=== PATIENT | female | born 1985 | race Two or more races ===

== ENCOUNTER 2018-08-16 11:57 | Inpatient (IN) | payer BC ==
[~2018-08-16] VITALS: Ht 149.9 cm; Wt 54.9 kg
--- OUTSIDE RECORDS SUMMARY | 2018-08-16 12:01 | XMS REPORT | Clinical Summary ---
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 Active Problems Problem Noted Date Diarrhea 03/29/2018 Encounters Care Team Description Date Type Specialty 03/29/2018 Travel Willy Fergsuon MD Joglekar, Swati, MD Diarrhea, unspecified type (Primary Dx) 03/28/2018 Emergency General Internal Medicine - 03/30/2018 after 08/15/2017 Social History Date Tobacco Use Types Packs/Day Years Used Never Assessed Sex Assigned at Date Recorded Not on file Industry Job Start Date Occupation Not on file Not on file Not on file Travel End Travel History Travel Start No recent travel history available. Last Filed Vital Signs Time Taken Vital Sign Reading 03/30/2018 7:34 AM [facility] Blood Pressure 102/68 03/30/2018 7:34 AM [facility] Pulse 54 03/30/2018 7:34 AM [facility] Temperature 37.1 C (98.7 F) 03/30/2018 7:34 AM [facility] Respiratory Rate 15 03/30/2018 7:34 AM [facility] Oxygen Saturation 99% - Inhaled Oxygen - Concentration 03/29/2018 5:51 AM [facility] Weight 52.7 kg (116 lb 4 oz) 03/29/2018 5:51 AM [facility] Height 149.9 cm (4' 11") 03/29/2018 5:51 AM [facility] Body Mass Index 23.48 Plan of Treatment Health Maintenance Due Date Last Done Comments INFLUENZA VACCINE 09/06/2018 Procedures Comments Procedure Name Priority Date/Time Associated Diagnosis ESTIMATED GFR Routine 03/30/2018 3:30 AM [facility] BASIC METABOLIC PANEL Routine 03/30/2018 3:30 AM [facility] RESPIRATORY PATHOGEN Routine 03/29/2018 PANEL 10:43 AM [facility] GASTROINTESTINAL PANEL Routine 03/29/2018 8:31 AM [facility] LACTIC ACID LEVEL, SEPSIS Timed 03/29/2018 - NOW AND REPEAT 2X EVERY 5:59 AM [facility] 3 HOURS LACTIC ACID LEVEL, SEPSIS Timed 03/29/2018 - NOW AND REPEAT 2X EVERY 3:09 AM [facility] [address] ABDOMEN PELVIS WO STAT 03/29/2018 CONTRAST 1:50 AM [facility] POC , URINE STAT 03/29/2018 1:22 AM [facility] ESTIMATED GFR STAT 03/29/2018 12:10 AM [facility] URINALYSIS SCREEN AND STAT 03/29/2018 MICROSCOPY, WITH REFLEX 12:10 AM [facility] TO CULTURE LIPASE LEVEL STAT 03/29/2018 12:10 AM [facility] LACTIC ACID LEVEL, SEPSIS STAT 03/29/2018 - NOW AND REPEAT 2X EVERY 12:10 AM [facility] 3 HOURS COMPREHENSIVE METABOLIC STAT 03/29/2018 PANEL 12:10 AM [facility] HC COMPLETE BLD COUNT STAT 03/29/2018 W/AUTO DIFF 12:10 AM [facility] URINE CULTURE STAT 03/29/2018 12:10 AM [facility] after 08/15/2017 Results * Estimated GFR (03/30/2018 3:30 AM [facility]) Only the most recent of 2 results within the time period is included. Estimated GFR >=90 mL/min/1.73 m2 [facility] Comment: ISLAM [facility] rpretation G1 >=90 Normal or high G2 60-89Mildly decreased [id number] Mildly to moderately decreased [id number] Moderately to severely decreased G4 15-29Severely decreased G5 <15Kidney failure The eGFR was calculated using the Chronic Kidney Disease Epidemiology Collaboration (CKD-EPI) equation. Interpretation is based on recommendations of the National Kidney Foundation-Kidney Disease Outcomes Quality Initiative (NKF-KDOQI) published in 2014. Specimen Plasma specimen Performing Organization Address City/State/Zipcode Phone Number [facility] [place] [address] PATHOLOGY AND GENOMIC MEDICINE [address] * Basic metabolic panel (03/30/2018 3:30 AM [facility]) [facility] Sodium 136 135 - 148 mEq/L [facility] Potassium 3.4 (L) 3.5 - 5.0 mEq/L [facility] Chloride 102 98 - 112 mEq/L [facility] CO2 24 24 - 31 mEq/L [facility] Anion gap 10@ANIO 7 - 15 mEq/L [facility] BUN 5 (L) 6 - 20 mg/dL [facility] Creatinine 0.67 0.50 - 0.90 mg/dL [facility] Glucose 115 (H) 65 - 99 mg/dL [facility] Calcium 8.4 8.3 - 10.2 mg/dL [facility] Specimen Plasma specimen Performing Organization Address City/[facility] [address]/Zipcode Phone Number [facility] [place] [place] [address] PATHOLOGY AND GENOMIC MEDICINE [address] * Respiratory pathogen panel (03/29/2018 10:43 AM [facility]) Pathologist [facility] Respiratory Negative for all pathogens [facility] pathogen panel tested: ISLAM Negative for Adenovirus [facility] Negative for Coronavirus HKU1 Negative for Coronavirus NL63 Negative for Coronavirus 229E Negative for Coronavirus OC43 Negative for Human Metapneumovirus Negative for Rhinovirus/Enterovirus Negative for Influenza A Negative for Influenza A/H1 Negative for Influenza A/H3 Negative for Influenza A/H1-2009 Negative for Influenza B Negative for Parainfluenza Virus 1 Negative for Parainfluenza Virus 2 Negative for Parainfluenza Virus 3 Negative for Parainfluenza Virus 4 Negative for Respiratory Syncytial Virus Negative for Bordetella pertussis Negative for Chlamydophila pneumoniae Negative for Mycoplasma pneumoniae This real-time PCR assay detects the presence of nucleic acids (RNA or DNA) for the respiratory pathogens listed. A result of "Not-detected" does not exclude the possibility of the presence of one or more pathogens at concentrations less than the detectable limits of the assay. Comment: Specimen Information Specimen Source: Nares Specimen Site: Not specified Specimen Nares - Not specified Performing Organization Address City/[facility] [address]/Zipcode Phone Number [facility] [place] [place] [address] PATH[facility] AND [facility] MEDICINE [address] * Gastrointestinal panel (03/29/2018 8:31 AM [facility]) Pathologist [facility] Gastrointestina Negative for all pathogens [facility] panel tested: ISLAM Negative for Salmonella [facility] Negative for Campylobacter Negative for Diarrheagenic E coli/Shigella Negative for Shiga-like toxin-producing E coli Negative for Plesiomonas shigelloides Negative for Yersinia enterocolitica Negative for Vibrio species Negative for Clostridium difficile (Toxin A/B) Negative for Cryptosporidium Negative for Giardia lamblia Negative for Cyclospora cayeteanensis Negative for Entamoeba histolytica Negative for Adenovirus F 40/41 Negative for Astrovirus Negative for Norovirus GI/GII Negative for Rotavirus A Negative for Sapovirus Negative for Clostridium difficile toxin Negative for E coli 0157 This real-time PCR assay detects the presence of nucleic acids (RNA or DNA) for the gastrointestinal pathogens listed. A result of "Not-detected" does not exclude the possibility of the presence of one or more pathogens at concentrations less than the detectable limits of the assay. Comment: Specimen Information Specimen Source: Stool Specimen Site: Nonpreserved Specimen Stool - Nonpreserved Performing Organization Address [facility] [address]/[facility] Phone Number [facility] [place] [place] [address] [address] * Lactic acid level, SEPSIS - Now and repeat 2x every 3 hours (03/29/2018 5:59 AM [facility]) Only the most recent of 3 results within the time period is included. Pathologist [facility] Lactic acid 1.5 0.5 - 2.2 mmol/L [facility] Specimen Blood Performing Organization Address [facility] [address]/Zipcode Phone Number [facility] [place] [address] PATHOLOGY AND GENOMIC MEDICINE [address] * CT Abdomen Pelvis Wo Contrast (03/29/2018 1:50 AM [facility]) Specimen Narrative Performed At EXAM: CT ABDOMEN PELVIS WO CONTRAST RADIANT CLINICAL HISTORY:Abd painunspecified TECHNIQUE: Multidetector CT of the abdomen and pelvis was performed without intravenous administration of iodinated contrast with multiplanar reformats. CT scans are performed using radiation dose reduction techniques (iterative reconstruction and/or automated exposure control). Technical factors are evaluated and adjusted to ensure appropriate moderation of exposure. Automated dose management technology is applied to adjust radiation exposure while achieving a diagnostic quality image. COMPARISON:None FINDINGS: Evaluation of the parenchyma, lymph nodes, and the vessels is limited without intravenous contrast. Lung bases: Normal Liver:No evidence for suspicious focal hepatic lesion. Gallbladder and biliary:Unremarkable. Pancreas:No focal pancreatic lesion identified. No pancreatic duct dilatation. Spleen: Unremarkable. Gastrointestinal:Stomach is unremarkable in appearance. Large and small bowel are normal in caliber. However, the small and large bowel demonstrate scattered intraluminal thickening which, although may be physiological, differential diagnosis includes mild enterocolitis. Peritoneum:No ascites or free air. Adrenals: Unremarkable. Kidneys and ureters:There is no evidence for large irregular renal mass, obstructing calculi, hydronephrosis, or hydroureter. Urinary bladder: Unremarkable. Reproductive organs:Uterus is unremarkable in appearance per CT. Lymph nodes:No enlarged lymph nodes in the abdomen or pelvis. Vascular:Unremarkable, though evaluation of vessel lumens is limited due to lack of IV contrast. Abdominal wall:Unremarkable. Bones:No acute osseous abnormality identified. IMPRESSION: 1.Large and small bowel are normal in caliber. However, the small and large bowel demonstrate scattered intraluminal thickening which, although may be physiological, differential diagnosis includes mild enterocolitis. [facility]-[id number] Procedure Note Interface, Radiology Results Incoming - 03/29/2018 1:58 AM [facility] EXAM: CT ABDOMEN PELVIS WO CONTRAST CLINICAL HISTORY: Abd pain unspecified TECHNIQUE: Multidetector CT of the abdomen and pelvis was performed without intravenous administration of iodinated contrast with multiplanar reformats. CT scans are performed using radiation dose reduction techniques (iterative reconstruction and/or automated exposure control). Technical factors are evaluated and adjusted to ensure appropriate moderation of exposure. Automated dose management technology is applied to adjust radiation exposure while achieving a diagnostic quality image. COMPARISON: None FINDINGS: Evaluation of the parenchyma, lymph nodes, and the vessels is limited without intravenous contrast. Lung bases: Normal Liver: No evidence for suspicious focal hepatic lesion. Gallbladder and biliary: Unremarkable. Pancreas: No focal pancreatic lesion identified. No pancreatic duct dilatation. Spleen: Unremarkable. Gastrointestinal: Stomach is unremarkable in appearance. Large and small bowel are normal in caliber. However, the small and large bowel demonstrate scattered intraluminal thickening which, although may be physiological, differential diagnosis includes mild enterocolitis. Peritoneum: No ascites or free air. Adrenals: Unremarkable. Kidneys and ureters: There is no evidence for large irregular renal mass, obstructing calculi, hydronephrosis, or hydroureter. Urinary bladder: Unremarkable. Reproductive organs: Uterus is unremarkable in appearance per CT. Lymph nodes: No enlarged lymph nodes in the abdomen or pelvis. Vascular: Unremarkable, though evaluation of vessel lumens is limited due to lack of IV contrast. Abdominal wall: Unremarkable. Bones: No acute osseous abnormality identified. IMPRESSION: 1. Large and small bowel are normal in caliber. However, the small and large bowel demonstrate scattered intraluminal thickening which, although may be physiological, differential diagnosis includes mild enterocolitis. [facility]-[id number] Performing Organization Address City/State/Zipcode Phone Number [facility] [address] [place] [address] * POC , urine (03/29/2018 1:22 AM [facility]) [facility] test Negative urine, POC QC done Yes Specimen Urine * Urinalysis screen and microscopy, with reflex to culture (03/29/2018 12:10 AM [facility]ER) Pathologist [facility] Specimen site Clean catch [facility] Color, UA Straw [facility] Appearance, UA Clear [facility] Specific 1.004 1.001 - 1.035 [facility] gravity, [facility] pH, UA 7.0 5.0 - 8.5 [facility] Protein, UA Negative Negative [facility] Glucose, UA Negative Negative [facility] Ketones, UA Trace (A) Negative [facility] Bilirubin, UA Negative Negative [facility] Blood, UA Moderate (A) Negative [facility] Nitrite, UA Negative Negative [facility] Urobilinogen, <2.0 <2.0 [facility] Leukocyte Negative Negative [facility] esterase, [facility] Epithelial <1 /HPF [facility] cells, [facility] WBC, UA <1 0 - 4 /HPF [facility] RBC, UA <1 0 - 5 /HPF [facility] Bacteria, UA Few None seen [facility] Yeast, UA None seen [facility] Yeast with None seen [facility] pseudohyphae[facility] Specimen Urine Performing Organization Address City/State/Zipcode Phone Number [facility] DEPARTMENT OF [address] [place] [id number] PATHOLOGY AND GENOMIC MEDICINE [id number] [place] [address] * CBC with platelet and differential (03/29/2018 12:10 AM [facility]ER) WBC 4.07 (L) 4.50 - 11.00 k/uL [facility] RBC 4.54 4.20 - 5.50 m/uL [facility] HGB 15.4 12.0 - 16.0 g/dL [facility] HCT 44.8 37.0 - 47.0 % [facility] MCV 98.7 82.0 - 100.0 fL [facility] MCH 33.9 27.0 - 34.0 pg [facility] MCHC 34.4 31.0 - 37.0 g/dL [facility] RDW - SD 42.1 37.0 - 55.0 fL [facility] MPV 10.9 8.8 - 13.2 fL [facility] Platelet count 173 150 - 400 k/uL [facility] Nucleated RBC 0.00 /100 WBC [facility] Neutrophils 75.2 (H) 39.0 - 69.0 % [facility] Lymphocytes 16.2 (L) 25.0 - 45.0 % [facility] Monocytes 7.4 0.0 - 10.0 % [facility] Eosinophils 0.2 0.0 - 5.0 % [facility] Basophils 0.5 0.0 - 1.0 % [facility] Immature 0.5Comment: "Immature 0.0 - 1.0 % [facility] granulocytes granulocytes" (promyelocytes, ISLAM myelocytes, metamyelocytes) [facility] Specimen Blood Performing Organization Address City/State/Zipcode Phone Number [facility] DEPARTMENT OF [address] [place] [id number] PATHOLOGY AND GENOMIC MEDICINE [address] [address] [facility] * Urine culture (03/29/2018 12:10 AM [facility]INDLE SANDER) Pathologist [facility] Urine culture SEE COMMENTComment: [facility] Bacteriuria screen negative. [facility] Specimen Performing Organization Address City/State/Zipcode Phone Number [facility] DEPARTMENT OF [address] [place] [address] PATHOLOGY AND GENOMIC MEDICINE [address] * Lipase level (03/29/2018 12:10 AM SPINDLE [facility]ANDER) Pathologist [facility] Lipase 23 13 - 60 U/L [facility] Specimen Plasma specimen Performing Organization Address City/State/Zipcode Phone Number [facility] DEPARTMENT OF [address] [place] [address] PATHOLOGY AND GENOMIC MEDICINE [address] * Comprehensive metabolic panel (03/29/2018 12:10 AM SPINDLE SANDER) Pathologist [facility] Sodium 134 (L) 135 - 148 mEq/L [facility] Potassium 3.7 3.5 - 5.0 mEq/L [facility] Chloride 96 (L) 98 - 112 mEq/L [facility] CO2 24 24 - 31 mEq/L [facility] Anion gap 14@ANIO 7 - 15 mEq/L [facility] BUN 5 (L) 6 - 20 mg/dL [facility] Creatinine 0.80 0.50 - 0.90 mg/dL [facility] Glucose 106 (H) 65 - 99 mg/dL [facility] Calcium 9.4 8.3 - 10.2 mg/dL [facility] Protein 8.3 6.3 - 8.3 g/dL [facility] Comment: [facility] 4.6-7.0 g/dL 1 week 4.4-7.6 g/dL 7 months-1year 5.1-7.3 g/dL 1-2 years5.6-7 .5 g/dL >3 years6.0-8 .0 g/dL 18-150 6.3-8.3 g/dL Albumin 4.1 3.5 - 5.0 g/dL [facility] A/G ratio 1.0 0.7 - 3.8 [facility] Alkaline 85 35 - 104 U/L [facility] phosphatase [facility] AST 49 (H) 10 - 35 U/L [facility] ALT 38 5 - 50 U/L [facility] Total bilirubin 0.3 0.0 - 1.2 mg/dL [facility] Specimen Plasma specimen Performing Organization Address City/State/Zipcode Phone Number [facility] DEPARTMENT OF [address] [place] [address] PATHOLOGY AND GENOMIC MEDICINE [place] [phone] [facility] after 08/15/2017 Insurance Type Payer Benefit Subscriber ID Effective Phone Address Plan / Dates Group PPO BCBS BCBS xxxxxxxxxxxx 2016- CHOICE Present PPO/GRANT [employer] PPO Advance Directives Patient has advance care planning documents on file. For more information, pierre pruett contact: [facility] [address] [place] [address]
--- OUTSIDE RECORDS SUMMARY | 2018-08-16 12:02 | XMS REPORT | Clinical Summary ---
Author Author [facility] Address Unknown Phone Unavailable Care Team Providers Care Specialist Managers Name Role Phone Sharpless PCP Allergies Comments Active Allergy Reactions Severity Noted Date Amoxicillin Nausea And 02/14/2013 Vomiting Peanut 07/08/2015 Tree Nuts Hives 04/12/2018 Medications End Date Status Medication Sig Dispensed Refills Start Date Active multivitamin per tablet Take 1 tablet 0 by mouth daily. Active mesalamine (LIALDA) 1.2 Take 1,200 mg 0 gram EC tablet by mouth 4 (four) times daily. Active ondansetron (ZOFRAN) 4 MG Take 4 mg by 0 tablet mouth 2 (two) times daily as needed for Nausea. Active cholecalciferol, vitamin Take 5,000 0 D3, 1,000 unit capsule Units by mouth daily. Active lactobacillus rhamnosus, Take 1 0 GG, (CULTURELLE) 10 capsule by billion cell capsule mouth daily. Active ferrous sulfate 325 (65 Take 325 mg 0 FE) MG tablet by mouth once a week. Active aloe vera 25 mg Cap Take by 0 mouth. Active Problems Not on file Encounters Care Team Description Date Type Specialty Tierney Marti MD COLONOSCOPY,BIOPSY 04/17/2018 Surgery Caity Gomez CRNA 04/17/2018 Anesthesia Event Tierney Marti MD 04/17/2018 Hospital Encounter Resource, Omt Preadmit Phone 04/12/2018 Hospital Pre-Admission Testing Encounter after 08/15/2017 Social History Date Tobacco Use Types Packs/Day Years Used Never Smoker Smokeless Tobacco: Never Used Alcohol Use Drinks/Week oz/Week Comments No Alcohol Habits Answer Date Recorded How often do you have a drink containing alcohol? Never 04/12/2018 How many drinks containing alcohol do you have on Not asked a typical day when you are drinking? How often do you have six or more drinks on one Not asked occasion? Sex Assigned at Date Recorded Not on file Industry Job Start Date Occupation Not on file Not on file Not on file Travel End Travel History Travel Start No recent travel history available. Last Filed Vital Signs Time Taken Vital Sign Reading 04/17/2018 10:05 AM CDT Blood Pressure 108/59 04/17/2018 10:05 AM CDT Pulse 47 04/17/2018 10:05 AM CDT Temperature 36.6 C (97.8 F) 04/17/2018 10:05 AM CDT Respiratory Rate 16 04/17/2018 10:05 AM CDT Oxygen Saturation 98% - Inhaled Oxygen - Concentration 04/17/2018 7:53 AM CDT Weight 50.8 kg (112 lb) 04/17/2018 7:53 AM CDT Height 149.9 cm (4' 11") 04/17/2018 7:53 AM CDT Body Mass Index 22.62 Plan of Treatment Not on file Procedures Comments Procedure Name Priority Date/Time Associated Diagnosis REPORT OF PROCEDURE - 04/17/2018 ENDOSCOPY URL 10:00 AM CDT REPORT OF PROCEDURE - 04/17/2018 ENDOSCOPY URL 9:57 AM CDT TISSUE EXAM AP Routine 04/17/2018 9:31 AM CDT UPPER ENDOSCOPY,BIOPSY 04/17/2018 Ulcerative pancolitis 9:30 AM CDT with complication (HCC) Enterocolitis Diarrhea, unspecified type Hematochezia Iron deficiency Nausea and vomiting, intractability of vomiting not specified, unspecified vomiting type COLONOSCOPY,BIOPSY 04/17/2018 Ulcerative pancolitis 9:30 AM CDT with complication (HCC) Enterocolitis Diarrhea, unspecified type Hematochezia Iron deficiency Nausea and vomiting, intractability of vomiting not specified, unspecified vomiting type POCT , URINE Routine 04/17/2018 8:22 AM CDT after 08/15/2017 Results * REPORT OF PROCEDURE - ENDOSCOPY URL (04/17/2018 10:00 AM CDT) Narrative Performed At * REPORT OF PROCEDURE - ENDOSCOPY URL (04/17/2018 9:57 AM CDT) Narrative Performed At * Tissue Exam (04/17/2018 9:31 AM CDT) Case Report Surgical Pathology [facility] Report [facility] Case: [id number] Authorizing Provider:Tierney Marti MDCollecte d: 04/17/2018 0931 Ordering Location: [facility] ENDOSCOPY Received: 04/17/2018 1120 SERVICES Pathologist: Ron Rushing MD Specimens: A) - Duodenum B) - Biopsy, Gastric, random R/O H pylori C) - Large Intestine, Colon - Right/Ascending D) - Large Intestine, Colon - Left/Descending E) - Rectum DIAGNOSIS A. DUODENUM, BIOPSY [facility] - ACTIVE DUODENITIS, MILD SEE [facility] COMMENT - NO EVIDENCE OF CELIAC DISEASE B. RANDOM GASTRIC BIOPSY - CHRONIC INACTIVE GASTRITIS - NO INTESTINAL METAPLASIA, NO DYSPLASIA AND NO MALIGNANCY IDENTIFIED - NO HELICOBACTER PYLORI ORGANISMS IDENTIFIED ON WARTHIN-STARRY STAIN C. RIGHT ASCENDING COLON, BIOPSY - COLONIC MUCOSA, WITHIN NORMAL LIMITS - NO ACTIVE COLITIS, NO DYSPLASIA AND NO MALIGNANCY IDENTIFIED D. LEFT DESCENDING COLON, BIOPSY - MILDLY ACTIVE COLITIS - NO DYSPLASIA AND NO MALIGNANCY IDENTIFIED E. RECTUM, BIOPSY - CHRONIC MODERATELY ACTIVE COLITIS/PROCTITIS - NO DYSPLASIA AND NO MALIGNANCY IDENTIFIED Signing Pathologist Direct Phone Line: [phone] COMMENT This finding is non-specific [facility] and may be seen with peptic [facility] injury, some drugs (i.e. NSAIDs), immune-mediated diseases, and infections. Clinical and endoscopic correlation is recommended. CPT Code(s) 94039 x 5, 81948 [facility] CLINICAL HISTORY Ulcerative pancolitis with [facility] complication, enterocolitis, [facility] hematochezia, iron deficiency, nausea and vomiting, intractability of vomiting not specified, rule out H. Pylori SPECIMEN SOURCE A. Duodenum. B. Random gastric [facility] biopsy. C. Right ascending [facility] colon. D. Left descending colon. E. Rectum GROSS DESCRIPTION Specimens are received in five [facility] containers of formalin all [facility] labeled with the patient's information. Specimen A: Labeled "duodenum" consists of multiple fragments of diaz tissue ranging from 0.1 to 0.3 cm, submitted entirely in A1. Specimen B: Labeled "random gastric biopsy" consists of five fragments of diaz tissue ranging from 0.1 to 0.3 cm submitted entirely in B1. Specimen C: Labeled "right ascending colon" consists of five fragments of diaz tissue ranging from 0.1 to 0.2 cm, submitted entirely in C1. Specimen D: Labeled "left descending colon" consists of five fragments of diaz tissue ranging from 0.1 to 0.3 cm, submitted entirely in D1. Specimen E: Labeled "rectum" consists of four fragments of diaz tissue ranging from 0.1 to 0.2 cm, submitted entirely in E1. CG/ew MICROSCOPIC DESCRIPTION A. Sections reveal fragments [facility] of small bowel mucosa with [facility] normal villous architecture. Features of inflammatory bowel disease and Whipple disease are not seen. Mild acute inflammation is identified. No increased intraepithelial lymphocytes are seen. Villous atrophy, parasites, viral inclusions, granulomatous inflammation, adenomatous change, dysplasia and malignancy are not seen. B. Sections reveal fragments of benign antral and corpus mucosa with chronic inflammation. No active gastritis is seen. No Helicobacter pylori organisms are identified on Warthin - Starry stain. Intestinal metaplasia, dysplasia and malignancy are not seen. C. Sections reveal pieces of benign colonic mucosa with chronic inflammation and benign lymphoid aggregates. There is no evidence of granulomatous inflammation or acute colitis. Features of collagenous colitis and lymphocytic colitis are not seen. Adenomatous change, dysplasia and malignancy are not seen. D. Sections reveal pieces of benign colonic mucosa with chronic inflammation and benign lymphoid aggregates. There is no evidence of granulomatous inflammation. Cryptitis is seen in few areas. Features of collagenous colitis and lymphocytic colitis are not seen. Adenomatous change, dysplasia and malignancy are not seen. E. Sections reveal chronic moderately active colitis. Increased inflammatory cells are seen within the lamina propria along with crypt distortion, and many areas showing cryptitis and crypt abscesses. No granulomatous inflammation is seen. Features of collagenous colitis and lymphocytic colitis are not seen. Adenomatous change, dysplasia and malignancy are not seen. SPECIAL STUDIES IMMUNOHISTOCHEMISTRY/SPECIAL [facility] STAIN SUMMARY: [facility] The results of immunohistochemical studies and/or special stains are as follows: B. Warthin-Starry stain - No Helicobacter pylori organisms identified Specimen Tissue Tissue - Gastric biopsy sample (specimen) Tissue - Ascending colon structure (body structure) Tissue - Descending colon structure (body structure) Tissue - Rectum structure (body structure) Performing Organization Address City/State/Zipcode Phone Number [facility] [address] [place] [address] MED[facility]ENTER * POCT , urine (04/17/2018 8:22 AM CDT) Test Urine, POC Negative Control line present?, Yes POC Background clear?, POC Yes UPT Cassette Lot #, POC [id number] UPT Cassette Expiration 06-06-2019 Date, POC Specimen Urine after 08/15/2017 Insurance Payer Benefit Subscriber ID Type Phone Address Plan / Group BLUE CROSS/BLUE SHIELD BCBS PPO xxxxxxxxxxxx PPO [phone] [id number] [place] [address] CHOICE
--- OUTSIDE RECORDS SUMMARY | 2018-08-16 12:02 | XMS REPORT | Continuity of Care Document ---
Author Author [facility] Address Unknown Phone Unavailable Care Team Providers Care Well Point Pumping Supervisor Name Role Phone Do IT developers Information Avanzit Unavailable Unavailable Problems Problem Status Onset Date Classification Date Reported Comments Source Counseling 08/12/2018 Diagnosis 08/12/2018 [facility] Influenza due to Influenza A virus 08/12/2018 Diagnosis 08/12/2018 [facility] Stomach cramps 03/28/2018 Diagnosis 03/28/2018 [facility] Gastroenteritis 03/28/2018 Diagnosis 03/28/2018 [facility] Influenza-like illness 02/03/2017 Diagnosis 02/03/2017 [facility] Cough 02/03/2017 Diagnosis 02/03/2017 [facility] Posterior rhinorrhea 02/03/2017 Diagnosis 02/03/2017 [facility] Acute upper respiratory infection 07/30/2016 Diagnosis 07/30/2016 [facility] Feeling feverish 07/30/2016 Diagnosis 07/30/2016 [facility] Upper Urinary Tract Infection Problem 02/03/2017 [facility] Medications Medication Details Route Status Patient Instructions Ordering Provider Order Date Source mesalamine 1200 MG Delayed Release Oral Tablet [Lialda] Lialda 1.2 gram tablet,delayed release Active 03/28/2018 [facility] Dicyclomine Hydrochloride 20 MG Oral Tablet dicyclomine 20 mg tablet Take 1 tablet 4 times a day by oral route as needed for 3 days. Active [facility] Ondansetron 8 MG Disintegrating Oral Tablet ondansetron [address] 1 tablet every 8 hours by translingual route as needed for 3 days. Active [facility] benzonatate 200 MG Oral Capsule benzonatate 200 mg capsule Take 1 capsule 3 times a day by oral route for 10 days. Active [facility] Brompheniramine Maleate 0.4 MG/ML / Dextromethorphan Hydrobromide 2 MG/ML / Pseudoephedrine Hydrochloride 6 MG/ML Oral Solution [Bromfed DM] Bromfed DM 2 mg-30 mg-10 mg/5 mL syrup Take 10 mL every 4 hours by oral route as needed. Active [facility] Fluticasone propionate 0.05 MG/ACTUAT Metered Dose Nasal [place] fluticasone propionate 50 mcg/actuation nasal spray,suspension [place] 1 spray every day by intranasal route for 30 days. Active [facility] Oseltamivir 75 MG Oral Capsule oseltamivir 75 mg capsule Take 1 capsule twice a day by oral route for 5 days. Active [facility] Alprazolam 0.25 MG Oral Tablet alprazolam 0.25 mg tablet TAKE ONE (1) TABLET(S) BY MOUTH ONCE A DAY NEEDED FOR PANIC DISORDER. Active [facility] Amoxicillin 500 MG Oral Capsule amoxicillin 500 mg capsule TAKE ONE (1) CAPSULE(S) BY MOUTH THREE TIMES A DAY FOR 7 DAYS. Active [facility] Azithromycin 250 MG Oral Tablet azithromycin 250 mg tablet TK 2 TS PO AT ONCE TODAY THEN TK 1 T PO ONCE D FOR 4 DAYS Active [facility] Clindamycin 150 MG Oral Capsule clindamycin 150 mg capsule TK 1 C PO BID FOR 7 DAYS Active [facility] [id number] 0.3 ML Epinephrine 1 MG/ML Auto-Injector [Epipen] EpiPen 2-Karl 0.3 mg/0.3 mL injection, auto-injector Active [facility] Fluconazole 150 MG Oral Tablet fluconazole 150 mg tablet TAKE ONE (1) TABLET(S) BY MOUTH TODAY , THEN REPEAT IN 3 DAYS. Active [facility] NITROFURANTOIN, MACROCRYSTALS 25 MG / Nitrofurantoin, Monohydrate 75 MG Oral Capsule nitrofurantoin monohydrate/macrocrystals 100 mg capsule TK ONE C PO Q 12 H FOR 5 DAYS Active [facility] Nystatin 157566 UNT/ML / Triamcinolone Acetonide 1 MG/ML Topical Cream nystatin-triamcinolone 100,000 unit/g-0.1 % topical cream CHIRAG AA TID PRN FOR ITCHING Active [facility] Tinidazole 500 MG Oral Tablet tinidazole 500 mg tablet TK 4 TS PO D FOR 2 DAYS Active [facility] mesalamine 66.7 MG/ML Enema mesalamine 4 gram/60 mL enema Active [facility] Oseltamivir 75 MG Oral Capsule [Tamiflu] Tamiflu 75 mg capsule Take 1 capsule twice a day by oral route for 5 days. Active [facility] Allergies, Adverse Reactions, Alerts Substance Category Reaction Severity Reaction type Status Date Reported Comments Source Amoxicillin Allergy to substance 06/12/2014 [facility] Immunizations Immunization Date Given Site Status Last Updated Comments Source tetanus toxoid, unspecified formulation 02/06/2011 completed [facility] Results Order Name Results Value Reference Range Date Interpretation Comments Source Influenza A positive 08/12/2018 [facility] Influenza B negative 08/12/2018 [facility] Influenza A negative 03/28/2018 [facility] Influenza B negative 03/28/2018 [facility] Influenza A positive 02/03/2017 [facility] Influenza B negative 02/03/2017 [facility] RESULT negative 02/03/2017 [facility] SWAB LOCATION Left and Right tonsillar pillars 02/03/2017 [facility] Influenza A negative 07/30/2016 [facility] Influenza B negative 07/30/2016 [facility] RESULT negative 07/30/2016 [facility] SWAB LOCATION Left and Right tonsillar pillars 07/30/2016 [facility] Pathology Reports No Data Provided for This Section Diagnostic Reports No Data Provided for This Section Consultation Notes No Data Provided for This Section Discharge Summaries No Data Provided for This Section History and Physicals No Data Provided for This Section Vital Signs Vital Sign Value Date Comments Source Diastolic (mm Hg) 70 08/12/2018 [facility] Height 59 08/12/2018 [facility] Systolic (mm Hg) 100 08/12/2018 [facility] Weight 113 08/12/2018 [facility] Diastolic (mm Hg) 72 03/28/2018 [facility] Height 59 03/28/2018 [facility] Systolic (mm Hg) 100 03/28/2018 [facility] Weight 117 03/28/2018 [facility] Diastolic (mm Hg) 68 02/03/2017 [facility] Height 59 02/03/2017 [facility] Systolic (mm Hg) 110 02/03/2017 [facility] Weight 115 02/03/2017 [facility] Diastolic (mm Hg) 70 07/30/2016 [facility] Height 59 07/30/2016 [facility] Systolic (mm Hg) 110 07/30/2016 [facility] Weight 111 07/30/2016 [facility] Encounters Location Location Details Encounter Type Encounter Number Reason For Visit Attending Provider ADM Date DC Date Status Source [place] - [facility] - [id number] Zimmerman-C: [address] [place] [address], Ph. [phone] [id number] Mary Jane Sandy 07/30/2016 [facility] [place] - [facility] - [id number] Yung, CURRICULUM DEVELOPER-C: [address] [place] [address], Ph. [id number] Sumit Yung 02/03/2017 [facility] [place] - [facility] - [id number] Cynthia Tomasa, [employer] M[employer] OPERATOR-C: [address] [place] [address], Ph. [id number] Johanna Tomasa 03/28/2018 [facility] [place] [facility] - [id number] Shahid Ling [employer] OPERATOR-C: [address] [place] [address], Ph. [id number] Shahid Ling 08/12/2018 [facility] Procedures Procedure Code Date Perfomer Comments Source Tonsillectomy [facility] Assessment and Plan No Data Provided for This Section Plan of Care No Data Provided for This Section Social History Social History Date Source Smoking Status Never Smoker 06/12/2014 [facility] Family History No Data Provided for This Section Advance Directives No Data Provided for This Section Functional Status No Data Provided for This Section
--- OUTSIDE RECORDS SUMMARY | 2018-08-16 12:03 | XMS REPORT | Encounter Summary ---
Author Organization Unknown Address [address] [place] [address] Phone [phone] Reason for Visit Medical Complaint Instructions 1. Gastroenteritis rapid flu (A+B) gastroenteritis: care instructions ondansetron 8 mg disintegrating tablet 2. Stomach cramps dicyclomine 20 mg tablet Discussion Note: None recorded. Plan of Care Patient Instructions See patient education handout Reminders Provider Appointments None recorded. Lab Rapid Flu (A+B) 03/28/2018 [facility] Referral None recorded. Procedures None recorded. Surgeries None recorded. Imaging None recorded. Medications Name Start Date dicyclomine 20 mg tablet Take 1 tablet 4 times a day by oral route as needed for 3 days. Lialda 1.2 gram tablet,delayed release 03/28/2018 ondansetron [address] 1 tablet every 8 hours by translingual route as needed for 3 days. Medications Administered None recorded. Vitals Height Weight BMI Blood Pressure 4 ft 11 in 117 lbs 23.6 kg/m2 100/72 mm[Hg] Lab Results Date Name Specimen Result Interpretation Description Value Range Status Address Rapid Flu (A+B) Influenza a negative [facility]: [address] [place] [address] Influenza B negative [facility]: [address] [place] [address] Allergies Code Code System Name Reaction Severity Status Onset 723 RxNorm Amoxicillin Active Problems No Known Problems Procedures Date Name Performed by Tonsillectomy Information not available Vaccine List Vaccine Type tetanus toxoid, unspecified formulation 02/06/2011 Social History Smoking Status Never Smoker Past Encounters 03/28/2018 Gastroenteritis; Stomach Cramps VERONICA Nicole-C: [address] [place] [address], Ph. History of Present Illness [id number] Reported By: Patient HPI: Location: head/sinuses. Duration: 2 nightsdays. Severity: moderate. Onset/Timing: sudden. Context: no foreign travel, non-smoker, sick contact. Modifying factors: OTC medication. Associated Symptoms: no sputum production, no shortness of breath, no wheezing, no change in number of pillows needed to sleep at night, no sweats, no significant weight gain, no significant weight loss, no morning cough, no sore throat, no vomiting, no rash, no fever, no muscle aches, fatigue, diarrhea, nausea, headache; chills,intense abdominal pain Review of Systems:ROS as noted in the HPI Review of Systems Basic Reported By: Patient Physical Exam Adult Basic, Adult Female Complete Reported By: Patient Constitutional: General Appearance: healthy-appearing, well-nourished, well-developed. Level of Distress: NAD Psychiatric: Mental Status: active and alert. Orientation: to time, to place, to person Lungs: Respiratory effort: no dyspnea, no tachypnea, no use of accessory muscles, no intercostal retractions. Auscultation: breath sounds normal Cardiovascular: Heart Auscultation: RRR, no murmurs Neurologic: Gait and Station: normal gait, normal station Abdomen: Bowel Sounds: high-pitched. Inspection and Palpation: soft, non-distended, no guarding, no rebound tenderness, no masses, no CVA tenderness, epigastric tenderness, LUQ tenderness, RUQ tenderness, LLQ tenderness, RLQ tenderness. Liver: non-tender, no hepatomegaly. Spleen: non-tender, no splenomegaly. Hernia: none palpable
--- OUTSIDE RECORDS SUMMARY | 2018-08-16 12:03 | XMS REPORT | Encounter Summary ---
Author Organization Unknown Address [address] [place] [address] Phone [phone] Reason for Visit Medical Complaint Instructions 1. Influenza due to Influenza A virus rapid flu (A+B) Tamiflu 75 mg capsule fluticasone propionate 50 mcg/actuation nasal spray,suspension benzonatate 200 mg capsule influenza (flu): care instructions cough: care instructions oral rehydration: care instructions 2. Counseling influenza (flu) vaccine (inactivated or recombinant): what you need to know Discussion Note: None recorded. Plan of Care Patient Instructions Your Care Instructions Influenza (flu) is an infection in the lungs and breathing passages. It is caused by the influenza virus. There are different strains, or types, of the flu virus from year to year. Unlike the common cold, the flu comes on suddenly and the symptoms, such as a cough, congestion, fever, chills, fatigue, aches, and pains, are more severe. These symptoms may last up to 10 days. Although the flu can make you feel very sick, it usually doesn't cause serious health problems. Home treatment is usually all you need for flu symptoms. But your doctor may prescribe antiviral medicine to prevent other health problems, such as pneumonia, from developing. Older people and those who have a long-term health condition, such as lung disease, are most at risk for having pneumonia or other health problems. Follow-up care is a mckeon part of your treatment and safety. Be sure to make and go to all appointments, and call your doctor if you are having problems. It's also a good idea to know your test results and keep a list of the medicines you take. How can you care for yourself at home? Get plenty of rest. Drink plenty of fluids, enough so that your urine is light yellow or clear like water. If you have kidney, heart, or liver disease and have to limit fluids, talk with your doctor before you increase the amount of fluids you drink. Take an vhsn-imf-fozxctl pain medicine if needed, such as acetaminophen (Tylenol), ibuprofen (Advil, Motrin), or naproxen (Aleve), to relieve fever, headache, and muscle aches. Read and follow all instructions on the label. No one younger than 20 should take aspirin. It has been linked to Neeraj syndrome, a serious illness. Do not smoke. Smoking can make the flu worse. If you need help quitting, talk to your doctor about stop-smoking programs and medicines. These can increase your chances of quitting for good. Breathe moist air from a hot shower or from a sink filled with hot water to help clear a stuffy nose. Before you use cough and cold medicines, check the label. These medicines may not be safe for young children or for people with certain health problems. If the skin around your nose and lips becomes sore, put some petroleum jelly on the area. To ease coughing: Drink fluids to soothe a scratchy throat. Suck on cough drops or plain hard candy. Take an mnol-mxd-tpwnyzk cough medicine that contains dextromethorphan to help you get some sleep. Read and follow all instructions on the label. Raise your head at night with an extra pillow. This may help you rest if coughing keeps you awake. Take any prescribed medicine exactly as directed. Call your doctor if you think you are having a problem with your medicine. To avoid spreading the flu Wash your hands regularly, and keep your hands away from your face. Stay home from school, work, and other public places until you are feeling better and your fever has been gone for at least 24 hours. The fever needs to have gone away on its own without the help of medicine. Ask people living with you to talk to their doctors about preventing the flu. They may get antiviral medicine to keep from getting the flu from you. To prevent the flu in the future, get a flu vaccine every fall. Encourage people living with you to get the vaccine. Cover your mouth when you cough or sneeze. When should you call for help? Call 911 anytime you think you may need emergency care. For example, call if: You have severe trouble breathing. Call your doctor now or seek immediate medical care if: You have new or worse trouble breathing. You seem to be getting much sicker. You feel very sleepy or confused. You have a new or higher fever. You get a new rash. Watch closely for changes in your health, and be sure to contact your doctor if: You begin to get better and then get worse. You are not getting better after 1 week. Reminders Provider Appointments None recorded. Lab Rapid Flu (A+B) 08/12/2018 [facility] Referral None recorded. Procedures None recorded. Surgeries None recorded. Imaging None recorded. Medications Name Start Date benzonatate 200 mg capsule Take 1 capsule 3 times a day by oral route for 10 days. fluticasone propionate 50 mcg/actuation nasal spray,suspension [place] 1 spray every day by intranasal route for 30 days. mesalamine 4 gram/60 mL enema Tamiflu 75 mg capsule Take 1 capsule twice a day by oral route for 5 days. Medications Administered None recorded. Vitals Height Weight BMI Blood Pressure 4 ft 11 in 113 lbs 22.8 kg/m2 100/70 mm[Hg] Lab Results Date Name Specimen Result Interpretation Description Value Range Status Address Rapid Flu (A+B) Influenza a positive [facility]: [address] [place] [address] Influenza B negative [facility]: [address] [place] [address] Allergies Code Code System Name Reaction Severity Status Onset 723 RxNorm Amoxicillin Active Problems No Known Problems Procedures Date Name Performed by Tonsillectomy Information not available Vaccine List Vaccine Type tetanus toxoid, unspecified formulation 02/06/2011 Social History Smoking Status Never Smoker Past Encounters 08/12/2018 Influenza Due to Influenza a Virus; Counseling VERONICA Raphael-C: [address] [place] [address], Ph. History of Present Illness [id number]-Svw Reported By: Patient HPI: Duration: 1 days. Severity: highest temperature 100. Context: no ill contacts, no tick/insect bites, no recent travel, no new medications. Associated Symptoms: no rash, no lethargy, fever/chills, headache, muscle aches, tired (fatigue), nasal discharge. Modifying Factors OTC medication Review of Systems:ROS as noted in the HPI Review of Systems Basic Reported By: Patient Physical Exam Adult Basic, Adult Female Complete Reported By: Patient Constitutional: General Appearance: healthy-appearing, well-nourished, well-developed. Level of Distress: acutely ill. Ambulation: ambulating normally Psychiatric: Mental Status: active and alert. Orientation: to time, to place, to person Czp-Ulio-Umbps-Throat: Ears: no lesions on external ear, no outer ear tenderness, EACs clear, TMs clear. Hearing: no hearing loss. Nose: no lesions on external nose, nares patent, no septal deviation, nasal passages clear, no sinus tenderness, no nasal discharge. Lips, Teeth, and Gums: no mouth or lip ulcers, no bleeding gums, normal dentition. Oropharynx: moist mucous membranes, no erythema, no exudates, tonsils not enlarged Lungs: Respiratory effort: no dyspnea, no tachypnea, no use of accessory muscles, no intercostal retractions. Auscultation: breath sounds normal Cardiovascular: Heart Auscultation: RRR, no murmurs
--- OUTSIDE RECORDS SUMMARY | 2018-08-16 12:03 | XMS REPORT | Encounter Summary ---
Author Organization Unknown Address [address] [place] [address] Phone [phone] Reason for Visit Medical Complaint Instructions 1. Acute upper respiratory infection upper respiratory infection (cold): care instructions fluticasone 50 mcg/actuation nasal spray,suspension Bromfed DM 2 mg-30 mg-10 mg/5 mL syrup rapid strep group A, throat 2. Feeling feverish rapid flu (A+B) Discussion Note: None recorded. Plan of Care Patient Instructions No antibiotics are needed at this time due to viral nature. Expected course is complete resolution in 10-14 days. Further management include - Antihistamines to dry nasal secretions - Nasal glucocorticoids (flonase) - Analgesics (acetaminophen or NSAIDs) for pain/fever relief - Increase rest, fluids, humidified inspired air. - Discontinue any tobacco products. Hard candy or lozenges for scratchy throat. - Handwashing is the single most effective preventive measure. Please seek care (PCP, Urgent Care, ER) or return to [facility] if symptoms worsen or do not resolve or if you notice signs of infection such as fever, SOB, redness/tenderness/yellow discharge. Reminders Provider Appointments None recorded. Lab Rapid Strep Group a, Throat 07/30/2016 [facility] Rapid Flu (A+B) 07/30/2016 [facility] Referral None recorded. Procedures None recorded. Surgeries None recorded. Imaging None recorded. Medications Name Start Date alprazolam 0.25 mg tablet TAKE ONE (1) TABLET(S) BY MOUTH ONCE A DAY NEEDED FOR PANIC DISORDER. amoxicillin 500 mg capsule TAKE ONE (1) CAPSULE(S) BY MOUTH THREE TIMES A DAY FOR 7 DAYS. azithromycin 250 mg tablet TK 2 TS PO AT ONCE TODAY THEN TK 1 T PO ONCE D FOR 4 DAYS Bromfed DM 2 mg-30 mg-10 mg/5 mL syrup Take 10 mL every 4 hours by oral route as needed. clindamycin 150 mg capsule TK 1 C PO BID FOR 7 DAYS EpiPen 2-Karl 0.3 mg/0.3 mL injection, auto-injector fluconazole 150 mg tablet TAKE ONE (1) TABLET(S) BY MOUTH TODAY , THEN REPEAT IN 3 DAYS. fluticasone 50 mcg/actuation nasal spray,suspension [place] 1 spray twice a day by intranasal route. nitrofurantoin monohydrate/macrocrystals 100 mg capsule TK ONE C PO Q 12 H FOR 5 DAYS nystatin-triamcinolone 100,000 unit/g-0.1 % topical cream CHIRAG AA TID PRN FOR ITCHING tinidazole 500 mg tablet TK 4 TS PO D FOR 2 DAYS Medications Administered None recorded. Vitals Height Weight BMI Blood Pressure 4 ft 11 in 111 lbs 22.4 kg/m2 110/70 mm[Hg] Lab Results Date Name Specimen Result Interpretation Description Value Range Status Address Rapid Flu (A+B) Influenza a negative [facility]: [address] [place] [address] Influenza B negative [facility]: [address] [place] [address] Rapid Strep Group a, Throat Result negative [facility]: [address] [place] [address] Swab Location Left and Right tonsillar pillars [facility]: [address] [place] [address] Allergies Code Code System Name Reaction Severity Onset 723 RxNorm Amoxicillin Problems Name Status Onset Date Source Upper Urinary Tract Infection Active Encounter Procedures Date Name Performed by Tonsillectomy Information not available Vaccine List None recorded. Social History Smoking Status Never Smoker Past Encounters 07/30/2016 Acute Upper Respiratory Infection; Feeling Feverish Mary Jane Sandy [facility]-C: [address] [place] [address], Ph. History of Present Illness Cough Reported By: Patient HPI: Quality: productive cough, sore throat, colored phlegm, congested. Duration: 1 days. Context: no sick contacts, no foreign travel, non-smoker, allergies. Modifying factors: OTC medication. Associated Symptoms: no shortness of breath, no wheezing, no sweats, no significant weight gain, no significant weight loss, no morning cough, no vomiting, no diarrhea, no rash, no nausea, yellow-green, thick sputum, sore throat, fever/chills, muscle aches, headache Review of Systems Basic Reported By: Patient Constitutional: Constitutional: no fever Eyes: Eyes: no eye complaints Xyay-Ezoh-Qbaop-Throat: Ears: ear pain. Nose: nose/sinus problems. Mouth/Throat: no bleeding gums, no mouth complaints, no teeth problems, sore throat Cardiovascular: Cardiovascular: no chest pain, no shortness of breath, no known heart murmur Respiratory: Respiratory: no wheezing, no shortness of breath, cough Gastrointestinal: Gastrointestinal: no abdominal pain, no vomiting / diarrhea Genitourinary: Genitourinary: no urinary complaints, no discharge Musculoskeletal: Musculoskeletal: no muscle weakness, no arthralgias/joint pain, no back pain, muscle aches Skin: Skin: no abnormal / changing mole, no jaundice, no rashes Neurologic: Neurologic: no loss of consciousness, no weakness, no numbness, no seizures, no dizziness, headache Physical Exam Adult Basic, Adult Female Complete Reported By: Patient Constitutional: General Appearance: healthy-appearing, well-nourished, well-developed. Level of Distress: NAD. Ambulation: ambulating normally Psychiatric: Mental Status: active and alert. Orientation: to time, to place, to person Eyes: Lids and Conjunctivae: non-injected, no discharge, no pallor Mwj-Riwq-Nlrpd-Throat: Ears: no lesions on external ear, no outer ear tenderness, EACs clear, TM opacified. Hearing: no hearing loss. Nose: no lesions on external nose, nares patent, no septal deviation, nasal passages clear, no sinus tenderness, nasal discharge--rhinorrhea, post nasal drip. Lips, Teeth, and Gums: no mouth or lip ulcers, no bleeding gums, normal dentition. Oropharynx: moist mucous membranes, no exudates, tonsils not enlarged, erythema Lungs: Respiratory effort: no dyspnea, no tachypnea, no use of accessory muscles, no intercostal retractions. Auscultation: breath sounds normal Cardiovascular: Heart Auscultation: RRR, no murmurs Neurologic: Gait and Station: normal gait, normal station. Cranial Nerves: grossly intact
--- OUTSIDE RECORDS SUMMARY | 2018-08-16 12:04 | XMS REPORT ---
Author Author [facility] Address Unknown Phone Unavailable Care Team Providers Care Lab Intern Name Role Phone TIERNEY DANG Unavailable Unavailable Payers Payer Name Policy Type Policy Number Effective Date Expiration Date Problems This patient has no known problems. Allergies, Adverse Reactions, Alerts Allergy Name Allergy Type Status Severity Reaction(s) Onset Date Inactive Date Treating Clinician Comments amoxicillin DA Active [place] 2014-06-07 00:00:00 Medications This patient has no known medications. Results Test Description Test Time Test Comments Text Results Atomic Results Result Comments TISSUE EXAM 2018-04-18 19:50:00 Surgical Pathology Report Case: [id number] Authorizing Provider: Tierney Dang MD Collected: 04/17/2018 0931 Ord ering Location: [facility] Received: 04/17/2018 1120 SERVICES Pathologist: Ron Rushing MD Specimens: A) - Duodenum B) - Biopsy, Gastric, random R/O H pylori C) - Large Intestine, Colon - Right/Ascending D) - Large Intestine, Colon - Left/Descending E) - Rectum A. DUODENUM, BIOPSY- ACTIVE DUODENITIS, MILD SEE COMMENT- NO EVIDENCE OF CELIAC DISEASEB. RANDOM GASTRIC BIOPSY- CHRONIC INACTIVE GASTRITIS- NO INTESTINAL METAPLASIA, NO DYSPLASIA AND NO MALIGNANCY IDENTIFIED- NO HELICOBACTER PYLORI ORGANISMS IDENTIFIED ON WARTHIN-STARRY STAINC. RIGHT ASCENDING COLON, BIOPSY- COLONIC MUCOSA, WITHIN NORMAL LIMITS- NO ACTIVE COLITIS, NO DYSPLASIA AND NO MALIGNANCY IDENTIFIEDD. LEFT DESCENDING COLON, BIOPSY- MILDLY ACTIVE COLITIS- NO DYSPLASIA AND NO MALIGNANCY IDENTIFIEDE. RECTUM, BIOPSY- CHRONIC MODERATELY ACTIVE COLITIS/PROCTITIS- NO DYSPLASIA AND NO MALIGNANCY IDENTIFIED Signing Pathologist Direct Phone Line: [phone] signed by Ron Rushing MD on 04/18/2018 at 7:50 PMThis finding is non-specific and may be seen with peptic injury, some drugs (i.e. NSAIDs), immune-mediated diseases, and infections. Clinical and endoscopic correlation is recommended.[id number] x 5, [id number] pancolitis with complication, enterocolitis, hematochezia, iron deficiency, nausea and vomiting, intractability of vomiting not specified, rule out H. Pylori A. Duodenum. B. Random gastric biopsy. C. Right ascending colon. D. Left descending colon. E. Rectum Specimens are received in five containers of formalin all labeled with the patient's information.Specimen A: Labeled "duodenum" consists of multiple fragments of diaz tissue ranging from 0.1 to 0.3 cm, submitted entirely in A1.Specimen B: Labeled "random gastric biopsy" consists of five fragments of diaz tissue ranging from 0.1 to 0.3 cm submitted entirely in B1.Specimen C: Labeled "right ascending colon" consists of five fragments of diaz tissue ranging from 0.1 to 0.2 cm, submitted entirely in C1.Specimen D: Labeled "left descending colon" consists of five fragments of diaz tissue ranging from 0.1 to 0.3 cm, submitted entirely in D1.Specimen E: Labeled "rectum" consists of four fragments of diaz tissue ranging from 0.1 to 0.2 cm, submitted entirely in E1. CG/ew A. Sections reveal fragments of small bowel mucosa with normal villous architecture. Features of inflammatory bowel disease and Whipple disease are not seen. Mild acute inflammation is identified. No increased intraepithelial lymphocytes are seen. Villous atrophy, parasites, viral inclusions, granulomatous inflammation, adenomatous change, dysplasia and malignancy are not seen.B. Sections reveal fragments of benign antral and corpus mucosa with chronic inflammation. No active gastritis is seen. No Helicobacter pylori organisms are identified on Warthin - Starry stain. Intestinal metaplasia, dysplasia and malignancy are not seen.C. Sections reveal pieces of benign colonic mucosa with chronic inflammation and benign lymphoid aggregates. There is no evidence of granulomatous inflammation or acute colitis. Features of collagenous colitis and lymphocytic colitis are not seen. Adenomatous change, dysplasia and malignancy are not seen.D. Sections reveal pieces of benign colonic mucosa with chronic inflammation and benign lymphoid aggregates. There is no evidence of granulomatous inflammation. Cryptitis is seen in few areas. Features of collagenous colitis and lymphocytic colitis are not seen. Adenomatous change, dysplasia and malignancy are not seen.E. Sections reveal chronic moderately active colitis. Increased inflammatory cells are seen within the lamina propria along with crypt distortion, and many areas showing cryptitis and crypt abscesses. No granulomatous inflammation is seen. Features of collagenous colitis and lymphocytic colitis are not seen. Adenomatous change, dysplasia and malignancy are not seen.IMMUNOHISTOCHEMISTRY/SPECIAL STAIN SUMMARY:The results of immunohistochemical studies and/or special stains are as follows:B. Warthin-Starry stain - No Helicobacter pylori organisms identified
--- OUTSIDE RECORDS SUMMARY | 2018-08-16 12:04 | XMS REPORT | Encounter Summary ---
Author Organization Unknown Address [address] [place] [address] Phone [phone] Reason for Visit Medical Complaint Instructions 1. Influenza-like illness rapid strep group A, throat rapid flu (A+B) 2. Influenza due to Influenza A virus oseltamivir 75 mg capsule influenza (flu): care instructions 3. Cough cough: care instructions Bromfed DM 2 mg-30 mg-10 mg/5 mL syrup benzonatate 200 mg capsule 4. Posterior rhinorrhea fluticasone 50 mcg/actuation nasal spray,suspension Discussion Note Pt in NAD, understands all information provided Plan of Care Patient Instructions Pt understands care instructions, will rest, increase fluids,monitor and treat fever with OCT tylenol/ibuprofen and practice good hand hygiene. Please seek care (PCP, Urgent Care, ER) or return to [facility] if symptoms get worse or do not resolve in 1 week. Reminders Provider Appointments None recorded. Lab Rapid Strep Group a, Throat 02/03/2017 [facility] Rapid Flu (A+B) 02/03/2017 [facility] Referral None recorded. Procedures None recorded. Surgeries None recorded. Imaging None recorded. Medications Name Start Date benzonatate 200 mg capsule Take 1 capsule 3 times a day by oral route for 5 days. Bromfed DM 2 mg-30 mg-10 mg/5 mL syrup Take 10 mL every 4 hours by oral route as needed. fluticasone 50 mcg/actuation nasal spray,suspension [place] 1 spray twice a day by intranasal route for 30 days. oseltamivir 75 mg capsule Take 1 capsule twice a day by oral route for 5 days. Medications Administered None recorded. Vitals Height Weight BMI Blood Pressure 4 ft 11 in 115 lbs 23.2 kg/m2 110/68 mm[Hg] Lab Results Date Name Specimen Result Interpretation Description Value Range Status Address Rapid Flu (A+B) Influenza a positive [facility]: [address] [place] [address] Influenza B negative [facility]: [address] [place] [address] Rapid Strep Group a, Throat Result negative [facility]: [address] [place] [address] Swab Location Left and Right tonsillar pillars [facility]: [address] [place] [address] Allergies Code Code System Name Reaction Severity Status Onset 723 RxNorm Amoxicillin Active Problems Name Status Onset Date Source Upper Urinary Tract Infection Active Encounter Procedures Date Name Performed by Tonsillectomy Information not available Vaccine List Vaccine Type tetanus toxoid, unspecified formulation 02/06/2011 Social History Smoking Status Never Smoker Past Encounters 02/03/2017 Influenza-like Illness; Influenza Due to Influenza a Virus; Cough; Posterior Rhinorrhea Sumit Yung, [employer]-C: [address] [place] [address], Ph. History of Present Illness [id number]-Lplzj-Kgv Reported By: Patient HPI: Quality: cannot identify. Duration: 2 days. Severity: highest temperature 101. Context: no tick/insect bites, no recent travel, no new medications, ill contacts. Associated Symptoms: no muscle aches, no rash, no lethargy, fever/chills, headache, tired (fatigue), cough, nasal passage blockage (stuffiness), nasal discharge Review of Systems:ROS as noted in the HPI Review of Systems Basic Reported By: Patient Physical Exam Adult Basic, Adult Female Complete Reported By: Patient Constitutional: General Appearance: healthy-appearing, well-nourished, well-developed. Level of Distress: NAD. Ambulation: ambulating normally Psychiatric: Mental Status: active and alert. Orientation: to time, to place, to person Qwy-Xxbo-Rnolv-Throat: Ears: no lesions on external ear, no outer ear tenderness, EACs clear, TMs clear. Hearing: no hearing loss. Nose: no lesions on external nose, nares patent, no septal deviation, nasal passages clear, no sinus tenderness, post nasal drip. Lips, Teeth, and Gums: no mouth or lip ulcers, no bleeding gums, normal dentition. Oropharynx: moist mucous membranes, no exudates, tonsils absent Neck: Neck: tender. Lymph Nodes: no cervical LAD Lungs: Respiratory effort: no dyspnea, no tachypnea, no use of accessory muscles, no intercostal retractions. Auscultation: breath sounds normal Cardiovascular: Heart Auscultation: RRR, no murmurs Neurologic: Gait and Station: normal gait, normal station
[2018-08-16] MEDS ORDERED: CEFEPIME 1GM/NS 0.9% 50 ML 50 ML IV ONE (12:27)
[2018-08-16] MEDS ORDERED: MORPHINE SULFATE INJ 4 MG/ML INJ 1ML IV ONE (12:27)
[2018-08-16] MEDS ORDERED: SODIUM CHLORIDE 0.9% 1000ML 1,000 ML IV STA (12:27)
[2018-08-16] MEDS ORDERED: ONDANSETRON HCL INJ 2MG/ML 2ML 2 MG/ML VIAL IV ONE (12:27)
[2018-08-16 14:44] LABS: BASOPHILS # (AUTO) 0.1 (0.0-0.1); BASOPHILS % 0.8 % (0.0-1.0); EOSINOPHILS % 0.1 % (0.0-6.0); HEMATOCRIT 35.7 % (34.2-44.1); LYMPHOCYTES # (AUTO) 0.3 (1.0-3.2); LYMPHOCYTES % 4.2 % (18.0-39.1); MEAN CORPUSCULAR HEMOGLOBIN 34.3 pg (28-32); MEAN CORPUSCULAR HGB CONC 36.4 g/dL (31-35); MEAN CORPUSCULAR VOLUME 94.2 fL (81-99); MONOCYTES # (AUTO) 0.1 (0.2-0.8); MONOCYTES % 1.2 % (4.4-11.3); NEUTROPHILS # (AUTO) 6.8 (2.1-6.9); NEUTROPHILS % 93.2 % (38.7-80.0); RED BLOOD COUNT 3.79 x10e6/uL (3.6-5.1); RED CELL DISTRIBUTION WIDTH 12.2 % (11.7-14.4)
[2018-08-16 14:50] LABS: PLATELET COUNT 39 x10e3/uL (140-360)
--- NOTE | 2018-08-16 14:54 | NUR ---
NOTIFIED DR SILVESTRE PLATELET 39. NO NEW ORDERS NOTED.
[2018-08-16 15:04] LABS: ALANINE AMINOTRANSFERASE 239 IU/L (0-55); ALBUMIN 2.6 g/dL (3.5-5.0); ALBUMIN/GLOBULIN RATIO 0.7 (0.8-2.0); ALKALINE PHOSPHATASE 241 IU/L (40-150); ANION GAP 18.7 mmol/L (8-16); BLOOD UREA NITROGEN 23 mg/dL (7-26); BUN/CREATININE RATIO 14 (6-25); CALCIUM 7.2 mg/dL (8.4-10.2); CARBON DIOXIDE 20 mmol/L (22-29); CHLORIDE 95 mmol/L (98-107); CREATININE, SERUM 1.66 mg/dL (0.57-1.11); EST GLOMERULAR FILTRATION RATE 36 ML/MIN (60-); GLUCOSE 83 mg/dL (74-118); LIPASE 9 U/L (8-78); POTASSIUM 3.7 mmol/L (3.5-5.1); SODIUM 130 mmol/L (136-145)
[2018-08-16 15:06] LABS: CLARITY,URINE CLOUDY (CLEAR); COLOR,URINE STRAW (YELLOW); LEUKOCYTE ESTERASE ,URINE NEGATIVE (NEGATIVE); NITRITE,URINE NEGATIVE (NEGATIVE); PROTEIN,URINE DIPSTICK 1+ (NEGATIVE); URINE UROBILINOGEN 0.2 mg/dL (0.2 - 1)
[2018-08-16 15:07] LABS: BILIRUBIN,URINE MODERATE (NEGATIVE); KETONES,URINE NEGATIVE (NEGATIVE)
[2018-08-16 15:10] LABS: BACTERIA,URINE MANY /HPF; WBC,URINE (MAN) 0-5 /HPF (0-5)
[2018-08-16] MEDS ORDERED: SODIUM CHLORIDE 0.9% 1000ML 1,000 ML IV SCH ×2 (15:30→17:00)
--- NOTE | 2018-08-16 16:22 | Diagnostic Imaging Report ---
EXAM: CT Abdomen and Pelvis WITHOUT intravenous contrast INDICATION: Right lower quadrant pain COMPARISON: None. TECHNIQUE: Abdomen and pelvis were scanned utilizing a multidetector helical scanner from the lung base to the pubic symphysis without administration of IV contrast. Coronal and sagittal reformations were obtained. Routine protocol was performed. IV CONTRAST: None ORAL CONTRAST: Water COMPLICATIONS: None RADIATION DOSE: Total DLP: 216.7 mGy*cm Dose modulation, iterative reconstruction, and/or weight based adjustment of the mA/kV was utilized to reduce the radiation dose to as low as reasonably achievable. FINDINGS: LOWER THORAX: Mild bibasilar dependent segmental atelectasis. No focal consolidation. HEPATOBILIARY: No focal hepatic lesions. No biliary ductal dilatation. There is gallbladder wall thickening versus pericholecystic fluid measuring approximately 10 mm in thickness. No biliary ductal dilatation. SPLEEN: No splenomegaly. PANCREAS: No focal masses or ductal dilatation. ADRENALS: Likely 11 mm left adrenal nodule, incompletely characterized on this noncontrast study. KIDNEYS/URETERS: No hydronephrosis, stones, or solid mass lesions. PELVIC ORGANS/BLADDER: Unremarkable. PERITONEUM / RETROPERITONEUM: Small amount of free fluid in the abdomen and pelvis. No free air. LYMPH NODES: No lymphadenopathy. VESSELS: Unremarkable. GI TRACT: No abnormal bowel wall thickening or bowel distention. No evidence of bowel obstruction. The appendix is not well visualized, however there are no right lower quadrant secondary findings of appendicitis. BONES AND SOFT TISSUES: Unremarkable. IMPRESSION: 1. Thickened gallbladder wall versus pericholecystic fluid. Further evaluation is recommended with right upper quadrant ultrasound. 2. Appendix not well visualized, however no secondary findings of appendicitis in the right lower quadrant. 3. Small amount of free fluid in the abdomen pelvis. 4. Likely 11mm left adrenal nodule, not adequately characterized on non-contrast images. Signed by: Aysha Keita MD on 08/16/2018 4:18 PM
[2018-08-16 16:37] LABS: BAND NEUTROPHILS % (MANUAL) 75 %; LYMPHOCYTES % (MANUAL) 4 % (19-48); MONOCYTES % (MANUAL) 2 % (3.4-9.0); NEUTROPHILS % (MANUAL) 18 % (40-74)
[2018-08-16 16:38] LABS: PLATELET ESTIMATE MARKEDLY DECREASED; PLATELET MORPHOLOGY COMMENT FEW GIANT; RBC MORPHOLOGY COMMENT NORMAL
[2018-08-16] MEDS ORDERED: CEFEPIME 1GM/NS 0.9% 50 ML 50 ML IV SCH (17:00)
--- OUTSIDE RECORDS SUMMARY | 2018-08-16 17:34 | XMS REPORT | Clinical Summary ---
Author Author [facility] Address Unknown Phone Unavailable Care Team Providers Care Electrical Construction Project Manager Name Role Phone Asked, No Pcp PCP [...] Description Date Type Specialty 03/29/2018 Travel Willy Ferguson MD Joglekar, Swati, MD Diarrhea, unspecified type [...] Taken Vital Sign Reading 03/30/2018 7:34 AM SALES CORRESPONDENT Blood Pressure 102/68 03/30/2018 7:34 AM SALES CORRESPONDENT Pulse 54 03/30/2018 7:34 AM SALES CORRESPONDENT Temperature 37.1 C (98.7 F) 03/30/2018 7:34 AM SALES CORRESPONDENT Respiratory Rate 15 03/30/2018 7:34 AM SALES CORRESPONDENT Oxygen Saturation 99% - Inhaled Oxygen - Concentration 03/29/2018 5:51 AM SALES CORRESPONDENT Weight 52.7 kg (116 lb 4 oz) 03/29/2018 5:51 AM SALES CORRESPONDENT Height 149.9 cm (4' 11") 03/29/2018 5:51 AM SALES CORRESPONDENT Body Mass Index 23.48 Plan of Treatment Health Maintenance Due Date Last Done Comments INFLUENZA VACCINE 09/06/2018 Procedures Comments Procedure Name Priority Date/Time Associated Diagnosis ESTIMATED GFR Routine 03/30/2018 3:30 AM SALES CORRESPONDENT BASIC METABOLIC PANEL Routine 03/30/2018 3:30 AM SALES CORRESPONDENT RESPIRATORY PATHOGEN Routine 03/29/2018 PANEL 10:43 AM SALES CORRESPONDENT GASTROINTESTINAL PANEL Routine 03/29/2018 8:31 AM SALES CORRESPONDENT LACTIC ACID LEVEL, SEPSIS Timed 03/29/2018 - NOW AND REPEAT 2X EVERY 5:59 AM SALES CORRESPONDENT 3 HOURS LACTIC ACID LEVEL, SEPSIS Timed 03/29/2018 - NOW AND REPEAT 2X EVERY 3:09 AM SALES CORRESPONDENT [address] ABDOMEN PELVIS WO STAT 03/29/2018 CONTRAST 1:50 AM SALES CORRESPONDENT POC , URINE STAT 03/29/2018 1:22 AM SALES CORRESPONDENT ESTIMATED GFR STAT 03/29/2018 12:10 AM SALES CORRESPONDENT URINALYSIS SCREEN AND STAT 03/29/2018 MICROSCOPY, WITH REFLEX 12:10 AM SALES CORRESPONDENT TO CULTURE LIPASE LEVEL STAT 03/29/2018 12:10 AM SALES CORRESPONDENT LACTIC ACID LEVEL, SEPSIS STAT 03/29/2018 - NOW AND REPEAT 2X EVERY 12:10 AM SALES CORRESPONDENT 3 HOURS COMPREHENSIVE METABOLIC STAT 03/29/2018 PANEL 12:10 AM SALES CORRESPONDENT HC COMPLETE BLD COUNT STAT 03/29/2018 W/AUTO DIFF 12:10 AM SALES CORRESPONDENT URINE CULTURE STAT 03/29/2018 12:10 AM SALES CORRESPONDENT after 08/15/2017 Results * Estimated GFR (03/30/2018 3:30 AM SALES CORRESPONDENT) Only the most recent of 2 results within the time period is included. Estimated GFR >=90 mL/min/1.73 m2 RUSO Comment: WORSHIP [facility] rpretation G1 >=90 Normal or high G2 60-89Mildly decreased Q3f55-62 Mildly to moderately decreased Q5t97-65 Moderately to severely decreased G4 15-29Severely decreased G5 <15Kidney failure The eGFR was calculated using the Chronic Kidney Disease Epidemiology Collaboration (CKD-EPI) equation. Interpretation is based on recommendations of the National Kidney Foundation-Kidney Disease Outcomes Quality Initiative (NKF-KDOQI) published in 2014. Specimen Plasma specimen Performing Organization Address City/State/Zipcode Phone Number [facility] [place] [address] PATHOLOGY AND GENOMIC MEDICINE [address] * Basic metabolic panel (03/30/2018 3:30 AM SALES CORRESPONDENT) [facility] Sodium 136 135 - 148 mEq/L [facility] Potassium 3.4 (L) 3.5 - 5.0 mEq/L [facility] Chloride 102 98 - 112 mEq/L [facility] CO2 24 24 - 31 mEq/L [facility] Anion gap 10@ANIO 7 - 15 mEq/L [facility] BUN 5 (L) 6 - 20 mg/dL [facility] Creatinine 0.67 0.50 - 0.90 mg/dL [facility] Glucose 115 (H) 65 - 99 mg/dL [facility] Calcium 8.4 8.3 - 10.2 mg/dL [facility] Specimen Plasma specimen Performing Organization Address City/[facility]/Zipcode Phone Number [facility] [place] [address] PATHOLOGY AND GENOMIC MEDICINE [address] * Respiratory pathogen panel (03/29/2018 10:43 AM SALES CORRESPONDENT) Pathologist [facility] Respiratory Negative for all pathogens [facility] pathogen panel tested: WORSHIP Negative for Adenovirus [facility] Negative for Coronavirus HKU1 Negative for Coronavirus [...] Nares - Not specified Performing Organization Address City/[facility]/Zipcode Phone Number [facility] [place] [address] PATHOLOGY AND [facility] MEDICINE [address] * Gastrointestinal panel (03/29/2018 8:31 AM SALES CORRESPONDENT) Pathologist [facility] Gastrointestina Negative for all pathogens [facility] panel tested: WORSHIP Negative for Salmonella HOSPITAL Negative for Campylobacter [...] Specimen Stool - Nonpreserved Performing Organization Address [facility] Phone Number [facility] [place] [address] PATHOLOG[address] * Lactic acid level, SEPSIS - Now and repeat 2x every 3 hours (03/29/2018 5:59 AM SALES CORRESPONDENT) Only the most recent of 3 results within the time period is included. Pathologist [facility] Lactic acid 1.5 0.5 - 2.2 mmol/L [facility] Specimen Blood Performing Organization Address [facility]/Zipcode Phone Number [facility] [place] [address] PATHOLOGY AND GENOMIC MEDICINE [address] * CT Abdomen Pelvis Wo Contrast (03/29/2018 1:50 AM SALES CORRESPONDENT) Specimen Narrative Performed At EXAM: CT ABDOMEN [...] be physiological, differential diagnosis includes mild enterocolitis. [facility]-[id number] Procedure Note Interface, Radiology Results Incoming - 03/29/2018 1:58 AM SALES CORRESPONDENT EXAM: CT ABDOMEN PELVIS WO CONTRAST CLINICAL [...] be physiological, differential diagnosis includes mild enterocolitis. [facility]-[id number] Performing Organization Address City/State/Zipcode Phone Number [facility] [address] [place] [address] * POC , urine (03/29/2018 1:22 AM SALES CORRESPONDENT) [facility] test Negative urine, POC QC done Yes Specimen Urine * Urinalysis screen and microscopy, with reflex to culture (03/29/2018 12:10 AM SALES CORRESPONDENT) Pathologist [facility] Specimen site Clean catch [facility] Color, UA Straw [facility] Appearance, UA Clear [facility] Specific 1.004 1.001 - 1.035 [facility]O gravity, [facility] pH, UA 7.0 5.0 - 8.5 [facility] Protein, UA Negative Negative [facility] Glucose, UA Negative Negative [facility] Ketones, UA Trace (A) Negative [facility] Bilirubin, UA Negative Negative [facility] Blood, UA Moderate (A) Negative [facility] Nitrite, UA Negative Negative [facility] Urobilinogen, <2.0 <2.0 [facility] Leukocyte Negative Negative [facility] esterase, [facility] Epithelial <1 /HPF [facility] cells, [facility] WBC, UA <1 0 - 4 /HPF [facility] RBC, UA <1 0 - 5 /HPF [facility] Bacteria, UA Few None seen [facility] Yeast, UA None seen [facility] Yeast with None seen [facility] Specimen Urine Performing Organization Address City/State/Zipcode Phone Number [facility] DEPARTMENT OF [address] [place] [address] PATHOLOGY AND GENOMIC MEDICINE [id number] [place] [address] * CBC with platelet and differential (03/29/2018 12:10 AM SALES CORRESPONDENT) WBC 4.07 (L) 4.50 - 11.00 k/uL [facility] RBC 4.54 4.20 - 5.50 m/uL [facility] HGB 15.4 12.0 - 16.0 g/dL [facility] HCT 44.8 37.0 - 47.0 % [facility] MCV 98.7 82.0 - 100.0 fL [facility] MCH 33.9 27.0 - 34.0 pg [facility] MCHC 34.4 31.0 - 37.0 g/dL [facility] RDW - SD 42.1 37.0 - 55.0 fL [facility] MPV 10.9 8.8 - 13.2 fL [facility] Platelet count 173 150 - 400 k/uL [facility] Nucleated RBC 0.00 /100 WBC [facility] Neutrophils 75.2 (H) 39.0 - 69.0 % [facility] Lymphocytes 16.2 (L) 25.0 - 45.0 % [facility] Monocytes 7.4 0.0 - 10.0 % [facility] Eosinophils 0.2 0.0 - 5.0 % [facility] Basophils 0.5 0.0 - 1.0 % [facility] Immature 0.5Comment: "Immature 0.0 - 1.0 % [facility]O granulocytes granulocytes" (promyelocytes, WORSHIP myelocytes, metamyelocytes) [facility] Specimen Blood Performing Organization Address City/State/Zipcode Phone Number [facility] DEPARTMENT OF [address] [place] [address] PATHOLOGY AND GENOMIC MEDICINE [address] [address] [facility] * Urine culture (03/29/2018 12:10 AM SALES CORRESPONDENT) Pathologist [facility] Urine culture SEE COMMENTComment: [facility]O Bacteriuria screen negative. [facility] Specimen Performing Organization Address City/State/Zipcode Phone Number [facility] DEPARTMENT OF [address] [place] [address] PATHOLOGY AND GENOMIC MEDICINE [address] * Lipase level (03/29/2018 12:10 AM SALES CORRESPONDENT) Pathologist [facility] Lipase 23 13 - 60 U/L [facility] Specimen Plasma specimen Performing Organization Address City/State/Zipcode Phone Number [facility] DEPARTMENT OF [address] [place] [address] PATHOLOGY AND GENOMIC MEDICINE [address] * Comprehensive metabolic panel (03/29/2018 12:10 AM SALES CORRESPONDENT) Pathologist [facility] Sodium 134 (L) 135 - 148 mEq/L [facility] Potassium 3.7 3.5 - 5.0 mEq/L [facility] Chloride 96 (L) 98 - 112 mEq/L [facility] CO2 24 24 - 31 mEq/L [facility] Anion gap 14@ANIO 7 - 15 mEq/L [facility] BUN 5 (L) 6 - 20 mg/dL [facility] Creatinine 0.80 0.50 - 0.90 mg/dL [facility] Glucose 106 (H) 65 - 99 mg/dL [facility] Calcium 9.4 8.3 - 10.2 mg/dL [facility] Protein 8.3 6.3 - 8.3 g/dL [facility] Comment: [facility] 4.6-7.0 g/dL 1 week 4.4-7.6 g/dL 7 months-1year 5.1-7.3 g/dL 1-2 years5.6-7 .5 g/dL >3 years6.0-8 .0 g/dL 18-150 6.3-8.3 g/dL Albumin 4.1 3.5 - 5.0 g/dL [facility] A/G ratio 1.0 0.7 - 3.8 [facility] Alkaline 85 35 - 104 U/L [facility] phosphatase [facility] AST 49 (H) 10 - 35 U/L [facility] ALT 38 5 - 50 U/L [facility] Total bilirubin 0.3 0.0 - 1.2 mg/dL [facility] Specimen Plasma specimen Performing Organization Address City/State/Zipcode Phone Number [facility] DEPARTMENT OF [address] [place] [address] PATHOLOGY AND GENOMIC MEDICINE [place] [phone] [facility] after 08/15/2017 Insurance Type Payer Benefit Subscriber ID Effective Phone Address Plan / Dates Group PPO BCBS BCBS xxxxxxxxxxxx 2016- CHOICE Present PPO/GRANT CUEVAS PPO Advance Directives Patient has advance care planning documents on file. For more information, pierre pruett contact: [facility] [address] [place] [address]
--- OUTSIDE RECORDS SUMMARY | 2018-08-16 17:36 | XMS REPORT | Clinical Summary ---
Author Author SOHAIL [facility] [place] [place] Address Unknown Phone Unavailable Care Team Providers Care Prom Burn Off Operator Name Role Phone Sharpless PCP Allergies Comments [...] 9:31 AM CDT) Case Report Surgical Pathology [facility] Report [facility] Case: [id number] Authorizing Provider:Tierney Marti MDCollecte d: 04/17/2018 0931 Ordering Location: [facility] Received: 04/17/2018 1120 SERVICES Pathologist: Ron Rushing MD Specimens: A) - Duodenum B) - Biopsy, Gastric, random R/O H pylori C) - Large Intestine, Colon - Right/Ascending D) - Large Intestine, Colon - Left/Descending E) - Rectum DIAGNOSIS A. DUODENUM, BIOPSY [facility] - ACTIVE DUODENITIS, MILD SEE [facility] COMMENT - NO EVIDENCE OF CELIAC DISEASE [...] MALIGNANCY IDENTIFIED Signing Pathologist Direct Phone Line: [phone] COMMENT This finding is non-specific [facility] and may be seen with peptic [facility] injury, some drugs (i.e. NSAIDs), immune-mediated diseases, and infections. Clinical and endoscopic correlation is recommended. CPT Code(s) 54717 x 5, 43782 [facility] CLINICAL HISTORY Ulcerative pancolitis with [facility] complication, enterocolitis, [facility] hematochezia, iron deficiency, nausea and vomiting, intractability of vomiting not specified, rule out H. Pylori SPECIMEN SOURCE A. Duodenum. B. Random gastric [facility] biopsy. C. Right ascending [facility] colon. D. Left descending colon. E. Rectum GROSS DESCRIPTION Specimens are received in five [facility] containers of formalin all [facility] labeled with the patient's information. Specimen A: [...] [facility] of small bowel mucosa with [facility] normal villous architecture. Features of inflammatory bowel [...] malignancy are not seen. SPECIAL STUDIES IMMUNOHISTOCHEMISTRY/SPECIAL [facility] STAIN SUMMARY: [facility] The results of immunohistochemical studies and/or special stains are as follows: B. Warthin-Starry stain - No Helicobacter pylori organisms identified Specimen Tissue Tissue - Gastric biopsy sample (specimen) Tissue - Ascending colon structure (body structure) Tissue - Descending colon structure (body structure) Tissue - Rectum structure (body structure) Performing Organization Address City/State/Zipcode Phone Number [facility] [address] [place] [address] MEDICAL CENTER * POCT , urine (04/17/2018 8:22 AM CDT) Test Urine, POC Negative Control line present?, Yes POC Background clear?, POC Yes UPT Cassette Lot #, POC [id number] UPT Cassette Expiration 06-06-2019 Date, POC Specimen Urine after 08/15/2017 Insurance Payer Benefit Subscriber ID Type Phone Address Plan / Group BLUE CROSS/BLUE SHIELD BCBS PPO xxxxxxxxxxxx PPO [phone] [address] [place] [address] CHOICE
--- OUTSIDE RECORDS SUMMARY | 2018-08-16 17:36 | XMS REPORT | Continuity of Care Document ---
Author Author [employer] Address Unknown Phone Unavailable Care Team Providers Care Community Health Nurse Name Role Phone [email or web address] Information MR Presta Unavailable Unavailable Problems Problem Status Onset Date [...] Fluticasone propionate 0.05 MG/ACTUAT Metered Dose Nasal [place] fluticasone propionate 50 mcg/actuation nasal spray,suspension [place] 1 spray every day by intranasal route [...] PO BID FOR 7 DAYS Active [facility] [id number] 0.3 ML Epinephrine 1 MG/ML Auto-Injector [Epipen] [...] H FOR 5 DAYS Active [facility] Nystatin 404809 UNT/ML / Triamcinolone Acetonide 1 MG/ML Topical [...] Date Status Source [place] - [facility] - [id number] Zimmerman-C: [address] [place] [address], Ph. [phone] [id number] Mary Jane Sandy 07/30/2016 [facility] [place] - [facility] - [id number] Yung, WEBSPHERE ARCHITECT-C: [address] [place] [address], Ph. [id number] Sumit Yung 02/03/2017 [facility] [place] - [facility] - [id number] Cynthia Tomasa, HOPPER FEEDER-C: [address] [place] [address], Ph. [id number] Johanna Tomasa 03/28/2018 [facility] [place] - [facility] - [id number]_Nongfdwy Shahid Ling HOPPER FEEDER-C: [address] [place] [address], Ph. [id number] Shahid Ling 08/12/2018 [facility] Procedures Procedure Code [...]
--- NOTE | 2018-08-16 17:46 | Diagnostic Imaging Report ---
EXAM: Right upper quadrant abdominal ultrasound INDICATION: Right upper quadrant pain COMPARISON: None. TECHNIQUE: Transverse and longitudinal images of the right upper quadrant abdomen were obtained FINDINGS: Liver: Size: 18.2 cm in the right midclavicular line, normal Appearance: Normal echogenicity, smooth contour Mass: No focal masses Gallbladder: There is thickening of the contracted gallbladder wall to 10 mm and a small amount of pericholecystic fluid. No stones or sludge within the gallbladder. Negative sonographic Conway's sign Bile Ducts: Intrahepatic Ducts: No dilatation Extrahepatic Ducts: Common bile duct measures 0.3cm, no dilatation Pancreas: Visualized portions of the pancreatic head, neck and proximal body are normal. Kidney: The right kidney measures 11.9 cm without evidence of hydronephrosis or stone. Vessels: Aorta: Visualized portions are normal Inferior Vena Cava: Visualized portions are normal Main Portal Vein: 1.2 cm, normal size with hepatopetal flow. Free Fluid: No ascites or pleural effusion IMPRESSION: Decompressed gallbladder with wall thickening to 10 mm and small amount of pericholecystic fluid. No stones or sludge within the gallbladder and negative sonographic Conway's sign. In conjunction, no specific findings of cholecystitis. Signed by: Aysha Keita MD on 08/16/2018 5:43 PM
[2018-08-16] MEDS: SODIUM CHLORIDE 0.9% 1000ML 1,000 ML IV SCH ×2 (18:29→21:05)
[2018-08-16] MEDS ORDERED: MORPHINE SULFATE 2 MG/ML SYR 1ML IV PRN (18:30)
[2018-08-16] MEDS: METRONIDAZOLE 500MG/NS 100ML 100 ML IV SCH (18:30)
[2018-08-16] MEDS ORDERED: MORPHINE SULFATE INJ 4 MG/ML INJ 1ML IV PRN (18:30)
--- NOTE | 2018-08-16 20:56 | NUR ---
dr rosas nath for fever elevated
--- NOTE | 2018-08-16 21:22 | NUR ---
dr chiang making rounds, recieved orders for ibuprofen and clear liquid diet dr pillai paged back, informed of dr rivera orders, dr pillai concurs. no furhter orders at this time
[2018-08-16] MEDS: IBUPROFEN 400 MG TAB PO PRN (21:49)
[2018-08-16] MEDS: FAMOTIDINE 20 MG/2 ML VIAL IV SCH (21:49)
--- NOTE | 2018-08-16 23:42 | NUR ---
dr pillai informed of bp of 82/50 and bp of 85/53, patients fever is now down to 100.0, recieved orders for lr 500cc bolus, then resume normal saline at 200cc/hr, patient has went to the restroom twice since in my shift. patient to be moved to [facility]
[2018-08-16] MEDS ORDERED: LACTATED RINGER'S 1,000 ML IV ONE (23:45)
[2018-08-17] VITALS (14 sets, daily range): BP systolic 77–101; BP diastolic 51–70
[2018-08-17] MEDS ORDERED: LACTATED RINGER'S 500 ML IV ONE (00:15)
[2018-08-17] MEDS ORDERED: APRISO0.375 GM PO (01:46)
[2018-08-17] MEDS ORDERED: CEFEPIME 1GM/NS 0.9% 50 ML 50 ML IV SCH (02:30)
[2018-08-17] MEDS: METRONIDAZOLE 500MG/NS 100ML 100 ML IV SCH ×3 (02:59→18:16)
[2018-08-17] MEDS: SODIUM CHLORIDE 0.9% 1000ML 1,000 ML IV SCH ×2 (02:59→09:45)
[2018-08-17] MEDS: ONDANSETRON HCL INJ 2MG/ML 2ML 2 MG/ML VIAL IV PRN ×3 (03:00→11:18)
--- NOTE | 2018-08-17 04:20 | Consultation ---
DATE OF CONSULTATION: 08/16/2018 HISTORY OF PRESENT ILLNESS: The patient 33-year-old female, who presents with complaints of abdominal pain. Says the pain started yesterday. She began feeling ill about 5 days ago or 6 days ago, was diagnosed with the flu. She has complaints of neck pain and photophobia and also abdominal pain. CT of the abdomen and pelvis has been done, which revealed some small amount of fluid in the abdomen, contracted gallbladder with no gallstones, no sludge seen. She also was found to have abnormal liver function tests, elevated bilirubin, also thrombocytopenia with platelet count of only 39,000. The patient's past medical historyis significant for ulcerative colitis. Her only medication is mesalamine. She has not had previous abdominal surgery. ALLERGIES: SHE HAS ALLERGY TO AMOXICILLIN. MEDICATIONS: Her only medication is as stated above. FAMILY HISTORY: Noncontributory. SOCIAL HISTORY: Noncontributory. REVIEW OF SYSTEMS: As stated above, she has had fever. No weight loss. She has had some diarrhea which has resolved, but now has associated still nausea and vomiting. PHYSICAL EXAMINATION: GENERAL: The patient is awake and alert. VITAL SIGNS: Heart rate around 100. She has temperature 103 at this time, the blood pressure is normal. HEENT: There is no sclerae icterus. NECK: No masses. LUNGS: Equal breath sounds are clear bilaterally. CARDIAC: Regular rate and rhythm with no murmur. ABDOMEN: Soft. There is no distention. There was mild mid and left upper quadrant tenderness. There is no mass. There was no organomegaly. EXTREMITIES: Have no edema. Pulses were palpable. NEUROLOGIC: Intact. ASSESSMENT: A 33-year-old female most likely with viral syndrome with multiorgan dysfunction. There is no signs of acute abdomen that require surgical intervention. At this point, recommend continue as ordered with IV fluids and I think she can start on liquid diet. There are no findings that warrant immediate surgical intervention. Thank you for asking me to see Ms. Haines. MD ALEXIS Madera/PEDRO /[id number]
[2018-08-17 05:43] LABS: BASOPHILS % 0.5 % (0.0-1.0); HEMATOCRIT 33.2 % (34.2-44.1); HEMOGLOBIN 11.7 g/dL (12.0-16.0); LYMPHOCYTES # (AUTO) 0.3 (1.0-3.2); LYMPHOCYTES % 4.9 % (18.0-39.1); MEAN CORPUSCULAR HGB CONC 35.2 g/dL (31-35); MEAN CORPUSCULAR VOLUME 96.5 fL (81-99); MONOCYTES # (AUTO) 0.1 (0.2-0.8); MONOCYTES % 1.6 % (4.4-11.3); NEUTROPHILS # (AUTO) 5.1 (2.1-6.9); NEUTROPHILS % 92.6 % (38.7-80.0); RED BLOOD COUNT 3.44 x10e6/uL (3.6-5.1); RED CELL DISTRIBUTION WIDTH 12.6 % (11.7-14.4)
[2018-08-17 05:44] LABS: PLATELET COUNT 27 x10e3/uL (140-360)
[2018-08-17 05:57] LABS: INR 1.03; PARTIAL THROMBOPLASTIN TIME 41.2 seconds (23.8-35.5)
[2018-08-17 06:28] LABS: ANION GAP 13.5 mmol/L (8-16); BILIRUBIN,DIRECT 3.4 mg/dL (0.0-0.5); CREATININE, SERUM 1.15 mg/dL (0.57-1.11); MAGNESIUM 1.4 MG/DL (1.3-2.1); POTASSIUM 3.5 mmol/L (3.5-5.1)
--- NOTE | 2018-08-17 06:43 | NUR ---
Critical labs called to Dr. Baker. New orders noted.
[2018-08-17] MEDS ORDERED: CALCIUM GLUCONATE 10% INJ 4.65 MEQ in SODIUM CHLORIDE 0.9% 50ML 50 ML IV ONE (07:30)
[2018-08-17 11:03] LABS: ANISOCYTOSIS S; BAND NEUTROPHILS % (MANUAL) 21 %; LYMPHOCYTES % (MANUAL) 7 % (19-48); MONOCYTES % (MANUAL) 4 % (3.4-9.0); NEUTROPHILS % (MANUAL) 68 % (40-74); PLATELET ESTIMATE MARKEDLY DECREASED; PLATELET MORPHOLOGY COMMENT NORMAL; POIKILOCYTOSIS S; RBC MORPHOLOGY COMMENT NORMAL
[2018-08-17] MEDS: CEFEPIME 1GM/NS 0.9% 50 ML 50 ML IV SCH ×2 (14:28→21:44)
--- NOTE | 2018-08-17 17:52 | NUR ---
RECEIVED REPORT FROM BRETT IN IMCU. AWAITING FOR PT TO ARRIVE TO FLOOR
[2018-08-17] MEDS ORDERED: SODIUM CHLORIDE 0.9% 250ML 250 ML ONE (18:11)
--- NOTE | 2018-08-17 19:00 | NUR ---
Report received at this time. Pt in no apparent distress. Call light is in reach.
[2018-08-17] MEDS: IBUPROFEN 400 MG TAB PO PRN (19:16)
[2018-08-17] MEDS: FAMOTIDINE 20 MG/2 ML VIAL IV SCH (21:43)
--- NOTE | 2018-08-17 22:41 | Diagnostic Imaging Report ---
EXAMINATION: CHEST SINGLE (PORTABLE) INDICATION: dyspnea COMPARISON: Abdominal CT 08/16/2018 FINDINGS: AP view TUBES and LINES: None. LUNGS: Bibasilar atelectasis.There is no evidence of pneumonia or pulmonary edema. Lungs are adequately expanded. PLEURA: Trace bilateral pleural effusions. No pneumothorax. HEART AND MEDIASTINUM: The cardiomediastinal silhouette is unremarkable. BONES AND SOFT TISSUES: No acute osseous lesion. Soft tissues are unremarkable. UPPER ABDOMEN: No free air under the diaphragm. IMPRESSION: Bibasilar atelectasis and trace bilateral pleural effusions. Signed by: Grayson Tong DO on 08/17/2018 10:38 PM
[2018-08-17] MEDS: ALBUTEROL/IPRATROPIUM 3 ML NEB NEB SCH (22:45)
[2018-08-18] VITALS: BP 100/77
[2018-08-18] MEDS: ONDANSETRON HCL INJ 2MG/ML 2ML 2 MG/ML VIAL IV PRN ×2 (01:06→08:21)
[2018-08-18] MEDS: METRONIDAZOLE 500MG/NS 100ML 100 ML IV SCH ×2 (01:55→12:59)
[2018-08-18] MEDS: ALBUTEROL/IPRATROPIUM 3 ML NEB NEB SCH ×3 (03:00→14:20)
[2018-08-18 04:00] VITALS: BP 95/64
[2018-08-18] MEDS: CEFEPIME 1GM/NS 0.9% 50 ML 50 ML IV SCH (05:43)
[2018-08-18 06:39] LABS: BASOPHILS # (AUTO) 0.1 (0.0-0.1); BASOPHILS % 0.9 % (0.0-1.0); EOSINOPHILS % 0.2 % (0.0-6.0); HEMATOCRIT 35.2 % (34.2-44.1); HEMOGLOBIN 12.4 g/dL (12.0-16.0); LYMPHOCYTES # (AUTO) 0.5 (1.0-3.2); LYMPHOCYTES % 5.2 % (18.0-39.1); MEAN CORPUSCULAR HGB CONC 35.2 g/dL (31-35); MEAN CORPUSCULAR VOLUME 96.4 fL (81-99); MONOCYTES # (AUTO) 0.2 (0.2-0.8); MONOCYTES % 2.2 % (4.4-11.3); NEUTROPHILS # (AUTO) 7.9 (2.1-6.9); NEUTROPHILS % 90.5 % (38.7-80.0); RED BLOOD COUNT 3.65 x10e6/uL (3.6-5.1); RED CELL DISTRIBUTION WIDTH 13.2 % (11.7-14.4)
[2018-08-18 06:41] LABS: PLATELET COUNT 15 x10e3/uL (140-360)
[2018-08-18 07:00] LABS: CALCIUM IONIZED 0.9 mmol/L (1.09-1.30)
--- NOTE | 2018-08-18 07:07 | NUR ---
Report given to FLORENCE Baker at this time. Pt resting comfortably in bed. Call light is in reach.
--- NOTE | 2018-08-18 07:10 | NUR ---
Dr. Baker called and made aware of low platelet level this morning. No new orders received at this time.
[2018-08-18 07:17] LABS: ALBUMIN 1.8 g/dL (3.5-5.0); ANION GAP 17.2 mmol/L (8-16); BILIRUBIN,DIRECT 4.6 mg/dL (0.0-0.5); CREATININE, SERUM 1.85 mg/dL (0.57-1.11); POTASSIUM 3.2 mmol/L (3.5-5.1)
[2018-08-18 07:25] LABS: CALCIUM 6.3 mg/dL (8.4-10.2)
[2018-08-18 08:21] VITALS: BP 88/62
--- NOTE | 2018-08-18 08:21 | NUR ---
bp reads low this am taken manually while pt is sitting up reading 88/62 pt denies dizziness nor c/o faint will continue to monitor
[2018-08-18 08:22] VITALS: BP 88/62
[2018-08-18 08:53] LABS: BAND NEUTROPHILS % (MANUAL) 16 %; LYMPHOCYTES % (MANUAL) 7 % (19-48); MONOCYTES % (MANUAL) 2 % (3.4-9.0); NEUTROPHILS % (MANUAL) 75 % (40-74); PLATELET ESTIMATE MARKEDLY DECREASED; PLATELET MORPHOLOGY COMMENT NORMAL; RBC MORPHOLOGY COMMENT NORMAL
--- NOTE | 2018-08-18 09:36 | NUR ---
notifed md pillai about pt chem of this am new orders received
[2018-08-18] MEDS ORDERED: LACTATED RINGER'S 1,000 ML IV SCH (09:45)
[2018-08-18] MEDS ORDERED: CALCIUM GLUCONATE 10% INJ 4.65 MEQ in SODIUM CHLORIDE 0.9% 50ML 50 ML IV ONE (09:45)
[2018-08-18] MEDS ORDERED: POTASSIUM CHLORIDE 20MEQ/100ML 200 ML IV ONE (09:45)
[2018-08-18] MEDS ORDERED: LEVOFLOXACIN 500MG/D5W 100ML 100 ML IV ONE (10:15)
--- NOTE | 2018-08-18 10:58 | NUR ---
Patient had 5 attempts to start 2 PIV's and the last 2 were successful. X2 20g PIV's in the left arm, one in the wrist and one in the AC. The patient tolerated the procedure with moderate anxiety, using deep breathing and reassurance from her mom to decrease her anxiety. The patient has calcium and LR + potassium run infusing. Patient is nauseated, but no emesis noted. Extreme salivation
--- NOTE | 2018-08-18 11:31 | NUR ---
UNABLE TO TAKE A BP AUTOMATICALLY MANUALLY READING 82/62. PT DENIES DIZZINESS OF FAINTNESS PT RESTING IN BED COMFORTABLY. WILL CONTINUE TO MONITOR
[2018-08-18 11:48] VITALS: BP 82/62
[2018-08-18] MEDS ORDERED: PROMETHAZINE 12.5MG/ NACL 0.9% 12.5 MG/50 ML BAG IV PRN (14:15)
[2018-08-18] MEDS ORDERED: LACTATED RINGER'S 500 ML INJ ONE (14:45)
--- NOTE | 2018-08-18 14:48 | NUR ---
md garcia rounded. orders given to transfer pt to [facility] for closer monitoring pt transferred to room 198 at this time report given to john sung
[2018-08-18] MEDS ORDERED: DEXTROSE 50% SYRINGE 50 ML IV ONE (14:57)
[2018-08-18] MEDS ORDERED: DIATRIZOATE MEGL/DIATRIZOA SOD 30 ML BTL PO ONE (15:09)
[2018-08-18] MEDS ORDERED: VANCOMYCIN 1GM/NS 250 ML 250 ML IV ONE (16:15)
[2018-08-18 16:19] LABS: BASOPHILS # (AUTO) 0.1 (0.0-0.1); BASOPHILS % 0.6 % (0.0-1.0); EOSINOPHILS % 0.2 % (0.0-6.0); HEMATOCRIT 34.8 % (34.2-44.1); HEMOGLOBIN 12.2 g/dL (12.0-16.0); LYMPHOCYTES # (AUTO) 0.5 (1.0-3.2); LYMPHOCYTES % 4.4 % (18.0-39.1); MEAN CORPUSCULAR HEMOGLOBIN 34.2 pg (28-32); MEAN CORPUSCULAR HGB CONC 35.1 g/dL (31-35); MEAN CORPUSCULAR VOLUME 97.5 fL (81-99); MONOCYTES # (AUTO) 0.1 (0.2-0.8); MONOCYTES % 1.2 % (4.4-11.3); NEUTROPHILS # (AUTO) 9.6 (2.1-6.9); NEUTROPHILS % 92.6 % (38.7-80.0); RED BLOOD COUNT 3.57 x10e6/uL (3.6-5.1); RED CELL DISTRIBUTION WIDTH 13.3 % (11.7-14.4)
[2018-08-18 16:24] LABS: PLATELET COUNT 12 x10e3/uL (140-360)
[2018-08-18 16:32] LABS: INR 1.19; PROTHROMBIN TIME 15.7 seconds (11.9-14.5)
--- NOTE | 2018-08-18 16:38 | Diagnostic Imaging Report ---
A single frontal view of the chest. HISTORY: Shortness of breath, abdominal pain, COMPARISON: Chest radiograph August 17, 2018 DISCUSSION: Portable technique, limits sensitivity of the exam. Soft tissue attenuation partially limits sensitivity of the exam. Overlying monitoring leads. Tubes/Lines: None Lungs and pleura: Low lung volumes result in bibasilar vascular crowding, accentuation of the pulmonary interstitial markings, central pulmonary vasculature, and the cardiac silhouette. Allowing for these limitations, the findings are as follows: Interval diffusely increased pulmonary interstitial markings with areas of more confluent patchy opacities. A trace left pleural effusion is possible. Heart and mediastinum: The cardiac silhouette and pulmonary vasculature appear enlarged. Bones and soft tissues: Appear unremarkable, given this limited exam. IMPRESSION: Given the short-term marked increase in the diffuse bilateral pulmonary opacities, findings are most compatible with moderate to severe pulmonary edema. Signed by: Dr. Rajendra Adhikari D.O., M.M.M. on 08/18/2018 4:35 PM
[2018-08-18 16:41] LABS: ALBUMIN 1.7 g/dL (3.5-5.0); ANION GAP 18.3 mmol/L (8-16); CREATININE, SERUM 2.05 mg/dL (0.57-1.11); POTASSIUM 3.3 mmol/L (3.5-5.1)
[2018-08-18] MEDS ORDERED: LORAZEPAM INJ 2 MG/ML VIAL IV NR (16:45)
[2018-08-18 16:46] LABS: CALCIUM 6.5 mg/dL (8.4-10.2)
[2018-08-18] MEDS ORDERED: LORAZEPAM INJ 2 MG/ML VIAL ONE (16:53)
[2018-08-18] MEDS ORDERED: MEROPENEM 1GM 100 ML IV SCH (17:00)
--- NOTE | 2018-08-18 17:11 | Diagnostic Imaging Report ---
EXAM: CT of the abdomen and pelvis WITHOUT contrast HISTORY: SEVERE ABD PAIN COMPARISON: Right upper quadrant ultrasound August 16, 2018. CT of the abdomen and pelvis August 16, 2018. TECHNIQUE: The abdomen and pelvis were scanned utilizing a multidetector helical scanner. Coronal and sagittal reformats are available. PROTOCOL: Routine IV CONTRAST: None, which limits sensitivity and specificity of evaluation of the soft tissues and vascular structures. ORAL CONTRAST: Approximately 150 cc of dilute Gastrografin was tolerated RADIATION DOSE: Total DLP: 443.02 mGy*cm Estimated effective dose: (DLP x 0.015 x size factor) Dose modulation, iterative reconstruction, and/or weight based adjustment of the mA/kV was utilized to reduce the radiation dose to as low as reasonably achievable. COMPLICATIONS: None FINDINGS: Beam hardening artifacts from overlying metallic densities partially limits regional evaluation. Beam lara artifact from the overlying upper extremities further limits the evaluation. LOWER THORAX: Bilateral patchy interstitial and airspace opacities. Bilateral small low-density pleural effusions with adjacent atelectasis. Trace low-density pericardial effusion. HEPATOBILIARY: No definite focal hepatic lesions. No biliary ductal dilatation. The marked gallbladder wall edema and/or pericholecystic fluid appears increased since the prior CT. SPLEEN: No splenomegaly. PANCREAS: No focal masses or ductal dilatation, within limitations of this exam. ADRENALS: No adrenal nodule. KIDNEYS/URETERS: No hydronephrosis, stones, or solid mass lesion identified within the limitations of this exam. PELVIC ORGANS/BLADDER: The urinary bladder is decompressed by a fully catheter, which limits evaluation. Small foci of air within the urinary bladder, compatible with instrumentation. The uterus is anteflexed. PERITONEUM / RETROPERITONEUM: Small volume of free fluid within the pelvis and diffuse nonspecific mesenteric fat stranding. GI TRACT: On limited evaluation of the gastrointestinal tract, no dilation or wall thickening identified. The visualized portions of the appendix appear within normal limits. LYMPH NODES: Limited evaluation for lymphadenopathy, but there appears to be nonspecific retroperitoneal lymph nodes of indeterminate size. VESSELS: Appear unremarkable within the limitations of this exam. BONES: No aggressive osseous lesion or acute fracture. SOFT TISSUES: Diffuse mild nonspecific soft tissue edema. IMPRESSION: 1. Interval increase in the marked nonspecific gallbladder wall edema and/or pericholecystic fluid, correlate for acute cholecystitis. 2. Anasarca, pulmonary edema, small bilateral pleural effusions, trace pericardial effusion, and small volume ascites. Signed by: Dr. Rajendra Adhikari D.O., M.M.M. on 08/18/2018 5:07 PM
[2018-08-18 17:14] LABS: BAND NEUTROPHILS % (MANUAL) 10 %; LYMPHOCYTES % (MANUAL) 1 % (19-48); MONOCYTES % (MANUAL) 4 % (3.4-9.0); NEUTROPHILS % (MANUAL) 85 % (40-74)
[2018-08-18 17:16] LABS: PLATELET ESTIMATE MODERATELY DECREASED
[2018-08-18 17:21] VITALS: BP 94/65
[2018-08-18 17:21] LABS: PLATELET MORPHOLOGY COMMENT FEW GIANT
[2018-08-18 17:23] LABS: RBC MORPHOLOGY COMMENT NORMAL
--- NOTE | 2018-08-18 17:57 | Diagnostic Imaging Report ---
RIGHT UPPER QUADRANT ULTRASOUND TECHNIQUE: Ultrasound evaluation of the right upper quadrant abdomen. Color Doppler evaluation was utilized to supplement the evaluation. Per the technologist performing the exam the patient generalized medical condition may evaluating the sonographic Conway's sign difficult. HISTORY: Severe abdominal pain COMPARISON: CT of the pelvis from the same date.] Quadrant ultrasound from August 16, 2018. CT of the pelvis from August 16, 2018. DISCUSSION: LIVER: No focal lesion identified. The liver measures 18 cm in length in the right mid-clavicular line. BILIARY: The gallbladder appears contracted with marked gallbladder wall edema and trace pericholecystic fluid. The sonographic Conway's sign is reported as negative; however, this must be correlated for administration of pain medication prior to the exam or recently. Common bile duct measures 0.3 cm. RIGHT KIDNEY: 13 cm in length. No hydronephrosis, solid mass, or cystic lesion identified. PANCREAS: Partially obscured by regional bowel gas, but no abnormality identified within this limitation. PERITONEUM: No free fluid. VASCULATURE: The visualized portions of the aorta and inferior vena cava appear unremarkable. The portal vein is patent with hepatopedal flow. IMPRESSION: Marked gallbladder wall edema and pericholecystic fluid in the setting of an uncertain accuracy of the sonographic Conway's sign, correlate for administration of pain medicine prior to the exam or recently. The constellation of findings remains concerning for the potential of acute cholecystitis in the appropriate clinical setting. Signed by: Dr. Rajendra Adhikari D.O., M.M.M. on 08/18/2018 5:53 PM
[2018-08-18] MEDS ORDERED: SODIUM BICARBONATE 8.4% SYRING 50 ML ONE ×2 (18:18→18:38)
[2018-08-18 18:33] LABS: ABG HCO3 14 mmol/L (23-28); ABG PCO2 20 mmHg (41-51); ABG PH 7.44 (7.31-7.41); ABG PO2 81 mmHg (80-105)
[2018-08-18] MEDS: SODIUM BICARBONATE 8.4% INJ 50 ML SYR IV NR ×2 (18:41→18:51)
--- NOTE | 2018-08-18 18:55 | NUR ---
pt transferred to [facility] via [facility] w/ family at bedside vs stable and noted. after speaking to dr jacobs and giving him results of abg. bicarb amps x2 given as per emar. platlets transfused as ordered. no s/s of any reaction.
--- NOTE | 2018-08-18 19:55 | Consultation ---
DATE OF CONSULTATION: Pulmonary Critical Care Consultation CHIEF COMPLAINT: Abdominal pain, confusion, and dyspnea. HISTORY OF PRESENT ILLNESS: The patient is a 33-year-old woman. She has a history of ulcerative colitis. She has been on mesalamine for this as an outpatient. She came to the hospital 2 days ago with chills and fevers that were progressing over the prior 5 days. She noted some abdominal pain as well. Upon admission, she had an elevated creatinine as well as bandemia and low platelet count. She received intravenous fluids and antibiotics and had some transient improvement. She subsequently had worsening symptoms today over the past couple of hours. She has been more confused and is having more abdominal pain. PAST MEDICAL HISTORY: Ulcerative colitis. PAST SURGICAL HISTORY: Noncontributory. FAMILY HISTORY: Noncontributory. SOCIAL HISTORY: The patient is not a smoker or drinker. ALLERGIES: THE PATIENT IS ALLERGIC TO PENICILLIN. REVIEW OF SYSTEMS: The patient has some fevers. She has no headache. She has no neck pain. She is not having any chest pain. She has no cough or dyspnea. She does note abdominal pain. She has had some diarrhea, but no nausea or vomiting. PHYSICAL EXAMINATION: VITAL SIGNS: The blood pressure is 82/62 and the saturation is 99%. Pulse is 93 and the respiratory rate is 25 to 30. HEENT: Shows no facial swelling or erythema. The oropharynx is normal. LYMPHATIC: Shows no submandibular, cervical, or supraclavicular adenopathy. CARDIAC: Reveals regular rate and rhythm with normal S1 and S2. LUNGS: Auscultation of lungs reveals rhonchorous breath sounds bilaterally. There is no wheezing. ABDOMEN: Tender, more on the right side. EXTREMITIES: There is no leg edema or calf tenderness. There is no cyanosis or clubbing. SKIN: Shows no rashes. NEUROLOGIC: Shows some confusion, but no focal abnormalities. LABORATORY DATA: White blood cell count is 8.7 and hemoglobin is 12.5. The platelet count is 15 with 75% neutrophils and 16% bands. The creatinine is 1.85 and the BUN is 29. The potassium is 3.2. The total bilirubin is 5.8 and the AST is 272. Total protein is 4.2. RADIOGRAPHIC DATA: Chest x-ray from yesterday shows bibasilar subsegmental atelectasis and some small effusions. A CT scan of the abdomen and pelvis from 2 days ago showed some thickening of gallbladder wall versus pericholecystic fluid as well as a small amount of free fluid in the abdomen. IMPRESSION: 1. Severe sepsis with unclear source. 2. Acute hepatic injury with a cholestatic pattern. 3. Thrombocytopenia. 4. Acute kidney injury. 5. Acidosis. PLAN: 1. The patient will have a repeat CT scan of the abdomen to look for any dilatation of the biliary tree and possible ascending cholangitis. 2. The patient will receive IV fluids. 3. Platelet transfusion. 4. Broaden antibiotics and obtain appropriate cultures. 5. If the patient worsens, she will require intubation. Pedro Slater MD [facility] /[id number]
--- NOTE | 2018-08-18 21:11 | Consultation ---
DATE OF CONSULTATION: 08/18/2018 REQUESTING PHYSICIAN: Pedro Slater MD. CONSULTING PHYSICIAN: Tony Richmond MD., Hematology-Oncology Service. REASON FOR CONSULTATION: Evaluation and management of patient with sepsis and severe thrombocytopenia. HISTORY OF PRESENTING ILLNESS: Ms. Haines is a very pleasant 33-year-old female with known history of ulcerative colitis for which she has been getting treated with mesalamine, presented to the Emergency Department due to complaint of generalized weakness, body aches, photophobia, and abdominal pain. CT scan of the abdomen was performed revealing gallbladder wall thickening. Her laboratory workup revealed thrombocytopenia and elevated bilirubin. She was admitted inpatient for further care. She was started on IV antibiotics. Apparently, the patient's hospital course got worse and she became confused. She also developed severe thrombocytopenia with mildly elevated bilirubin up to 5. Hematology-Oncology has been consulted to assist with the management. The patient is lying comfortably, not in acute distress. Her abdominal pain is improved. She is alert, awake, and oriented. Family is at bedside. She denies any history of hematologic disorder or history of cancer. PAST MEDICAL HISTORY: 1. Ulcerative colitis. 2. Mild obesity. PAST SURGICAL HISTORY: None. SOCIAL HISTORY: She denies history of smoking, alcohol use, or illicit drug use. ALLERGIES: AMOXICILLIN. CURRENT MEDICATIONS: Reviewed as per electronic medical record. REVIEW OF SYSTEMS: A 14-point review of systems negative except as mentioned in history of presenting illness as well as positive for fatigue, tiredness, body ache, nausea, vomiting, and abdominal discomfort. PHYSICAL EXAMINATION: VITAL SIGNS: Reviewed as per electronic medical record. HEENT: PERRLA. Extraocular movements are intact. Head is atraumatic and normocephalic. NECK: Supple. CVS: S1 and S2 audible. RESPIRATORY: Decreased bilateral air entry. ABDOMEN: Soft. Positive bowel sounds. EXTREMITIES: Negative edema. NEURO: The patient is alert and awake. LABORATORY DATA: White blood cell count of 10.4, hemoglobin 12.2, hematocrit 34.8, platelet 14860. BUN 34, creatinine 2.0, calcium 6.5, direct bilirubin 5.0. ASSESSMENT AND PLAN: Ms. Haines is a very pleasant 33-year-old female with known history of ulcerative colitis, presents to the Emergency Department due to worsening abdominal pain, fatigue, tiredness, nausea and vomiting. In the emergency department, she underwent CT scan of the abdomen and pelvis revealing thickened gallbladder wall, but no pericholecystic fluid. She was evaluated by surgery and felt not to be in acute cholecystitis. Her laboratory workup revealed thrombocytopenia and mildly elevated bilirubin. She was started on IV antibiotic, however, mentally she declined with drop in platelet count as well as rising bilirubin and creatinine. Today, Hematology-Oncology has been consulted to assist with the management. I reviewed the record and discussed at length with the patient as well as family member. Overall picture does not appear to be suggestive of microangiopathy as the patient's red blood cell morphology is normal and there is no hemolysis. Apparently, on family request, the patient already in the process of getting transferred to the [facility] for further care. I have recommended to give 1 unit of platelet transfusion to bring the platelet count up. Probable cause of symptoms are underlying sepsis and probable source could be cholecystitis. Plan has been discussed in detail with the family as well as Pulmonary, medical and surgical team. Critical care provider more than 35 minutes. MD NI[facility]/PEDRO /[id number]
[2018-08-19] MEDS ORDERED: LEVOFLOXACIN 500MG/D5W 100ML 100 ML IV SCH (11:00)
--- NOTE | 2018-08-19 14:39 | Discharge Summary ---
PRIMARY CARE DOCTOR: Dr. Fransico Moeller. FINAL DIAGNOSIS: Severe sepsis, present on admission. SECONDARY DIAGNOSES: 1. Hepatic failure with metabolic encephalopathy, not present on admission. 2. Acute renal failure. 3. Severe thrombocytopenia. PROCEDURES/STUDIES PERFORMED: 1. Platelet transfusion x1. 2. Abdominal CT. 3. Abdominal ultrasound. CONSULTANTS: 1. Dr. Peña, Surgery. 2. Dr. Slater, Pulmonary. 3. Dr. Richmond, Hematology. HISTORY: Per H and P. HOSPITAL COURSE: The patient was admitted with what sounds like initially viral meningitis picture about five days prior to admission. Subsequently, a couple of days prior to admission developed what sounds like a gastroenteritis picture. When the patient was first admitted, her platelet count was 39, her INR was normal, her total bilirubin was 4.3, her creatinine was 1.66, her AST and ALT were in the 200 range. The patient was aggressively hydrated. She probably received 5 L of IV fluid. On second day, her creatinine went down to 1.15. Her LFTs were slowly trending down, although her platelet count went down to 27. Of note initially, the patient also had 75% bandemia on the date of admission and on second day, it came down to 21%. On hospital day #2, the patient was feeling better, she was hungry, therefore the patient was saline locked and was allowed to have a diet. On hospital day #1, the patient was also evaluated by surgeon, who did not feel that she has a surgical abdomen and there was no evidence of acute cholecystitis. However, the patient was not able to tolerate p.o., and on hospital day #3, her total bilirubin went up to 5.8, creatinine went up to 1.85, and had more nonspecific abdominal discomfort. The patient was aggressively hydrated again. The patient was seen again on hospital day #3 two hours later and she was developing what was most likely hepatic/metabolic encephalopathy also with hypoglycemia. Her repeat total bilirubin is 6.3. The patient also began to have metabolic acidosis with creatinine at 2.05. Therefore, upon discussing with the family members, the patient was transferred to [facility] for higher level of care. I have updated manager rfid in details about her hospital stay here. CONDITION ON DISCHARGE: For higher level care. DISCHARGE MEDICATIONS: Please see medication reconciliation form. Yiching MD ALVAREZ De Los Santos /[id number] cc: Fransico Moeller
== END 2018-08-18 19:01 | disposition short-term general hospital (02) | DRG 871 ==
LOC: ER 11:57 → ERHOLD 16:49 → IMCU 08-17 00:20 → MED/SURG 08-17 18:01 → IMCU 08-18 14:55 → ICU 08-18 17:09
PROVIDERS: ADMIT Internal Medicine; ATTEND Internal Medicine
DX: A41.89 Other specified sepsis (principal); K72.00 Acute and subacute hepatic failure without coma; G93.41 Metabolic encephalopathy; B19.9 Unspecified viral hepatitis without hepatic coma; D69.3 Immune thrombocytopenic purpura; A08.39 Other viral enteritis; K51.90 Ulcerative colitis, unspecified, without complications; N17.9 Acute kidney failure, unspecified; E87.2 Acidosis; E87.1 Hypo-osmolality and hyponatremia; R65.20 Severe sepsis without septic shock; R94.5 Abnormal results of liver function studies; Z88.1 Allergy status to other antibiotic agents; D69.6 Thrombocytopenia, unspecified; E83.51 Hypocalcemia; E88.09 Other disorders of plasma-protein metabolism, not elsewhere classified; E16.2 Hypoglycemia, unspecified
CPT/HCPCS: 36415; 36600; 71045; 74176; 76705; 80048; 80053; 80076; 80329; 81001; 82805; 82948; 83605; 83690; 83735; 84702; 85025; 85610; 85730; 86850; 86900; 87040; 94640; 99284; J0610; J0692; J1956; J2060; J2270; J2405; J2550; J3480; J7030; J7050; J7121; J7799; P9034